=== PATIENT | male | born 1955 | race American Indian/Alaskan Native ===

== ENCOUNTER 2017-08-20 09:08 | Inpatient (IN) | payer MEDICARE ==
[2017-08-20] MEDS ORDERED: NACL 0.9% 500 ML 500 ML IV ONE (09:34)
[2017-08-20] MEDS ORDERED: NACL 0.9% 1000 ML 1,000 ML IV ONE ×3 (09:36→15:35)
[2017-08-20] MEDS ORDERED: TYLENOL PO ONE (09:38)
[2017-08-20 09:59] LABS: Hematocrit 40.7 % (35.5-45.6); Mean Corpuscular HGB Conc 32 % (32-34); Mean Corpuscular Volume 81 fl (84-94); Platelet Count 146 K/mm3 (140-440); Red Blood Count 5.03 M/mm3 (3.65-5.03)
[2017-08-20] MEDS ORDERED: ZOSYN/NS 4.5GM/100ML 4.5 GM/100 ML VIAL IV ONE (10:00)
[2017-08-20 10:05] LABS: Mean Corpuscular Hemoglobin 26 pg (28-32)
[2017-08-20 10:14] LABS: Albumin 3.9 g/dL (3.9-5); Calcium 9.7 mg/dL (8.4-10.2)
[2017-08-20 10:22] LABS: Bacteria,Urine 4+ /HPF (Negative); Bilirubin,Urine NEG (Negative); Blood,Urine LG (Negative); Color,Urine Amber (Yellow); Nitrite,Urine NEG (Negative); Urobilinogen,Urine < 2.0 mg/dL (<2.0)
[2017-08-20 10:24] LABS: RBC,Urine > 182.0 /HPF (0.0-6.0); WBC,Urine > 182.0 /HPF (0.0-6.0)
[2017-08-20 10:28] LABS: INR 1.48 (0.87-1.13)
[2017-08-20] MEDS ORDERED: LEVAQUIN 750MG/150ML 750 MG/150 ML BAG IV ONE (10:28)
[2017-08-20 10:29] LABS: Partial Thromboplastin Time 37.3 Sec. (24.2-36.6)
--- NOTE | 2017-08-20 10:34 | Emergency Department Report ---
ED Fever HPI - General Chief Complaint: Fever Stated Complaint: BLOOD IN URINE Time Seen by Provider: 08/20/17 09:31 Source: EMS, [facility] records Exam Limitations: other (autism) - History of Present Illness Initial Comments: 62-year-old male with a past medical history of DVT, pressure ulcer, hypertension, MRSA, autism, and dysphagia presents to the hospital complains of fever and blood in urine. Patient is on Eliquis. Patient presents to ED with indwelling urethral Montiel. Unable to provide any history of present illness due to autism. Patient does not appear to be in any pain or distress. ED Review of Systems ROS: Stated complaint: BLOOD IN URINE Other details as noted in HPI Comment: Unobtainable due to pts medical conditions ED Past Medical Hx - Past Medical History Previous Medical History?: Yes Hx Deep Vein Thrombosis: Yes Additional medical history: Autistic - Surgical History Past Surgical History?: No - Social History Smoking Status: Unknown if ever smoked Substance Use Type: None ED Physical Exam - General Limitations: Language Barrier - Other Other exam information: General: Autistic Head exam: Atraumatic, normocephalic Eyes exam: Normal appearance ENT: Moist mucous membrane, normal oropharynx Neck exam: Normal inspection, full range of motion, no meningismus nontender Respiratory exam: Clear to auscultation bilateral, no wheezes, rales, crackles Cardiovascular: Tachycardic regular rhythm Abdomen: Soft, nondistended, and nontender, with normal bowel sounds, no rebound, or guarding Extremity: Limited range of motion of left arm secondary to contracture Neurologic: Alert, no facial droop, some contracture to the left arm equal hand assistant engineer and foot dorsiflexion. Bilateral lower extremity weakness with minimum antigravity movement of lower extremities. Sensation grossly intact Psychiatric: normal affect, normal mood Skin: Warm, dry, intact ED Course Vital Signs 08/20/17 08/20/17 08/20/17 09:32 10:25 10:35 Temperature 99.6 F Pulse Rate 150 H 142 H Respiratory 24 16 Rate Blood Pressure 112/60 O2 Sat by Pulse 100 Oximetry - Reevaluation(s) Reevaluation #1: 08/20/17 10:37 Patient treated with normal saline, Zosyn ordered, and then subsequently Levaquin sepsis. Heart rate improved with. Tylenol for low-grade temperature. No urine was obtained for full report from indwelling cath ED Medical Decision Making - Lab Data Result diagrams: 08/20/17 09:36 08/20/17 09:36 Lab Results 08/20/17 08/20/17 08/20/17 Range/Units 09:36 09:36 09:36 WBC 25.0 H (4.5-11.0) K/mm3 RBC 5.03 (3.65-5.03) M/mm3 Hgb 13.0 (11.8-15.2) gm/dl Hct 40.7 (35.5-45.6) % MCV 81 L (84-94) fl MCH 26 L (28-32) pg MCHC 32 (32-34) % RDW 17.0 H (13.2-15.2) % Plt Count 146 (140-440) K/mm3 Seg Neutrophils % Health Promotion Manager PT 18.7 H (12.2-14.9) Sec. INR 1.48 H (0.87-1.13) APTT 37.3 H (24.2-36.6) Sec. VBG pH (7.320-7.420) Sodium 146 H (137-145) mmol/L Potassium 4.6 (3.6-5.0) mmol/L Chloride 105.3 (98-107) mmol/L Carbon Dioxide 20 L (22-30) mmol/L Anion Gap 25 mmol/L BUN 54 H (9-20) mg/dL Creatinine 1.7 H (0.8-1.5) mg/dL Estimated GFR 50 ml/min BUN/Creatinine Ratio 32 % Glucose 167 H (75-100) mg/dL Lactic Acid (0.7-2.0) mmol/L Calcium 9.7 (8.4-10.2) mg/dL Total Bilirubin 1.00 (0.1-1.2) mg/dL AST 25 (5-40) units/L ALT 23 (7-56) units/L Alkaline Phosphatase 75 (35-129) units/L Total Protein 8.3 H (6.3-8.2) g/dL Albumin 3.9 (3.9-5) g/dL Albumin/Globulin Ratio 0.9 % Lipase (13-60) units/L Urine Color (Yellow) Urine Turbidity (Clear) Urine pH (5.0-7.0) Ur Specific [place] (1.003-1.030) Urine Protein (Negative) mg/dL Urine Glucose (UA) (Negative) mg/dL Urine Ketones (Negative) mg/dL Urine Blood (Negative) Urine Nitrite (Negative) Urine Bilirubin (Negative) Urine Urobilinogen (<2.0) mg/dL Ur Leukocyte Esterase (Negative) Urine WBC (Auto) (0.0-6.0) /HPF Urine RBC (Auto) (0.0-6.0) /HPF Urine Bacteria (Auto) (Negative) /HPF 08/20/17 08/20/17 08/20/17 Range/Units 09:36 09:36 09:45 WBC (4.5-11.0) K/mm3 RBC (3.65-5.03) M/mm3 Hgb (11.8-15.2) gm/dl Hct (35.5-45.6) % MCV (84-94) fl MCH (28-32) pg MCHC (32-34) % RDW (13.2-15.2) % Plt Count (140-440) K/mm3 Seg Neutrophils % PT (12.2-14.9) Sec. INR (0.87-1.13) APTT (24.2-36.6) Sec. VBG pH 7.456 H (7.320-7.420) Sodium (137-145) mmol/L Potassium (3.6-5.0) mmol/L Chloride (98-107) mmol/L Carbon Dioxide (22-30) mmol/L Anion Gap mmol/L BUN (9-20) mg/dL Creatinine (0.8-1.5) mg/dL Estimated GFR ml/min BUN/Creatinine Ratio % Glucose (75-100) mg/dL Lactic Acid 4.10 H* (0.7-2.0) mmol/L Calcium (8.4-10.2) mg/dL Total Bilirubin (0.1-1.2) mg/dL AST (5-40) units/L ALT (7-56) units/L Alkaline Phosphatase (35-129) units/L Total Protein (6.3-8.2) g/dL Albumin (3.9-5) g/dL Albumin/Globulin Ratio % Lipase 9 L (13-60) units/L Urine Color (Yellow) Urine Turbidity (Clear) Urine pH (5.0-7.0) Ur Specific [place] (1.003-1.030) Urine Protein (Negative) mg/dL Urine Glucose (UA) (Negative) mg/dL Urine Ketones (Negative) mg/dL Urine Blood (Negative) Urine Nitrite (Negative) Urine Bilirubin (Negative) Urine Urobilinogen (<2.0) mg/dL Ur Leukocyte Esterase (Negative) Urine WBC (Auto) (0.0-6.0) /HPF Urine RBC (Auto) (0.0-6.0) /HPF Urine Bacteria (Auto) (Negative) /HPF 08/20/17 Range/Units Unknown WBC (4.5-11.0) K/mm3 RBC (3.65-5.03) M/mm3 Hgb (11.8-15.2) gm/dl Hct (35.5-45.6) % MCV (84-94) fl MCH (28-32) pg MCHC (32-34) % RDW (13.2-15.2) % Plt Count (140-440) K/mm3 Seg Neutrophils % PT (12.2-14.9) Sec. INR (0.87-1.13) APTT (24.2-36.6) Sec. VBG pH (7.320-7.420) Sodium (137-145) mmol/L Potassium (3.6-5.0) mmol/L Chloride (98-107) mmol/L Carbon Dioxide (22-30) mmol/L Anion Gap mmol/L BUN (9-20) mg/dL Creatinine (0.8-1.5) mg/dL Estimated GFR ml/min BUN/Creatinine Ratio % Glucose (75-100) mg/dL Lactic Acid (0.7-2.0) mmol/L Calcium (8.4-10.2) mg/dL Total Bilirubin (0.1-1.2) mg/dL AST (5-40) units/L ALT (7-56) units/L Alkaline Phosphatase (35-129) units/L Total Protein (6.3-8.2) g/dL Albumin (3.9-5) g/dL Albumin/Globulin Ratio % Lipase (13-60) units/L Urine Color [place] (Yellow) Urine Turbidity Turbid (Clear) Urine pH 5.0 (5.0-7.0) Ur Specific [place] 1.016 (1.003-1.030) Urine Protein 30 mg/dl (Negative) mg/dL Urine Glucose (UA) 50 (Negative) mg/dL Urine Ketones Neg (Negative) mg/dL Urine Blood Lg (Negative) Urine Nitrite Neg (Negative) Urine Bilirubin Neg (Negative) Urine Urobilinogen < 2.0 (<2.0) mg/dL Ur Leukocyte Esterase Mod (Negative) Urine WBC (Auto) > 182.0 H (0.0-6.0) /HPF Urine RBC (Auto) > 182.0 (0.0-6.0) /HPF Urine Bacteria (Auto) 4+ (Negative) /HPF - EKG Data -: EKG Interpreted by Me EKG shows normal: sinus rhythm, axis (65), QRS complexes (82), ST-T waves (no stemi/t inv) Rate: tachycardia (146) - EKG Data When compared to previous EKG there are: previous EKG unavailable - Radiology Data Radiology results: image reviewed (cxr: naf, read by me) - Medical Decision Making Plan to admit patient to the hospital further treatment for UTI with sepsis. Treatment initiated in the ED. Hospitalist informed - Differential Diagnosis UTI, pneumonia, sepsis, dehydration, renal failure Critical Care Time: No Critical care attestation.: If time is entered above; I have spent that time in minutes in the direct care of this critically ill patient, excluding procedure time. ED Disposition Clinical Impression: Sepsis, UTI (urinary tract infection), Sinus tachycardia, Prerenal renal failure, Elevated lactic acid level, Leukocytosis, Autism, Hx of deep venous thrombosis, Anticoagulant long-term use, Hematuria Disposition: -09 OP ADMIT IP TO THIS HOSP Is pt being admited?: Yes Condition: Stable Time of Disposition: 10:33 ([place]/hospitalist)
[2017-08-20 10:55] LABS: Total Cells Counted 100
[2017-08-20 10:56] LABS: Band Neutrophils # (Manual) 4.5 K/mm3; Basophils % (Manual) 0 % (0.0-1.8); Eosinophils % (Manual) 0 % (0.0-4.3); Spherocytes Few
[2017-08-20 10:57] LABS: Hypochromasia 1+
--- NOTE | 2017-08-20 11:18 | XRay Report ---
PORTABLE CHEST: Fever An AP portable view of the chest demonstrates a normal cardiac contour considering the limits of this technique. The lungs are clear with no evidence of infiltrate, fluid or failure. IMPRESSION: Normal portable chest.
[2017-08-20] MEDS ORDERED: DULCOLAX PR PRN (11:28)
[2017-08-20] MEDS ORDERED: MILK OF MAGNESIA PO PRN (11:28)
[2017-08-20] MEDS ORDERED: ZOFRAN IV PRN (11:28)
[2017-08-20] MEDS ORDERED: TYLENOL PO PRN (11:28)
--- NOTE | 2017-08-20 11:31 | History and Physical Report ---
History of Present Illness Date of examination: 08/20/17 Date of admission: 08/20/17 Chief complaint: Fever Bloody urine History of present illness: Patient has Autism, lives in SNF. He also has history of hypertension, DVT lower ext, indwelling nagy, kidney stone. He was sent in because of fever and bloody urine. In ED was found to have Sepsis due to complicated UTI with indwelling catheter. He also has Sinus tachycardia, acute kidney injury. He has been on Eliquis for DVT lower extremities. Patient has Autism and cannot obtain history from him. History obtained from medical records and paper chart from [facility]. Will admit for further management. Past History Past Medical History: DVT, other (Autism, kidney stone, UTI, dysphagia) Past Surgical History: No surgical history Social history: full code, other (Autism, lives in SNF) Medications and Allergies Allergies Allergy/AdvReac Type Severity Reaction Status Date / Time No Known Allergies Allergy Unverified 08/20/17 09:31 Home Medications Medication Instructions Recorded Confirmed Last Taken Type Apixaban [Eliquis] 5 mg PO BID 08/20/17 08/20/17 Unknown History Ascorbic Acid [Vitamin C with Marsha 500 mg PO DAILY 08/20/17 08/20/17 Unknown History Hips] Ondansetron [Zofran TAB] 4 mg PO Q8HR PRN 08/20/17 08/20/17 Unknown History Zinc Sulfate 220 mg PO QDAY 08/20/17 08/20/17 Unknown History oxyCODONE /ACETAMINOPHEN [Percocet 1 tab PO Q6HR PRN 08/20/17 08/20/17 Unknown History 5/325] Active Meds: Active Medications Levofloxacin/Dextrose (Levaquin 750mg/150ml) 750 mg in 150 mls @ 100 mls/hr IV ONCE ONE Stop: 08/20/17 11:57 Last Admin: 08/20/17 10:46 Dose: 100 mls/hr Sodium Chloride (Nacl 0.9% 1000 Ml) 1,000 mls @ 999 mls/hr IV BOLUS ONE Stop: 08/20/17 11:47 Last Admin: 08/20/17 11:14 Dose: 999 mls/hr Review of Systems ROS unobtainable: due to mental status Exam - Physical Exam Narrative exam: GEN APPEARANCE : Not in acute distress, lying in bed, Obese HEENT: Normocephalic, Atraumatic NECK : supple, no JVD LUNGS: Clear to auscultation bilaterally, no rales, no wheeze HEART: S1 and S2 regular, tachy, no murmurs, rubs or gallop ABD: Soft, non tender, non distended, normal bowel sounds EXT: No edema, no clubbing, no cyanosis, no cyanosis NEURO: Lethargic, has Autism, follows commands : has indwelling nagy - Constitutional Vitals: Temp Pulse Resp BP Pulse Ox 99.6 F 141 H 16 136/88 99 08/20/17 09:32 08/20/17 10:45 08/20/17 10:45 08/20/17 10:45 08/20/17 10:45 Results - Labs CBC & Chem 7: 08/20/17 18:18 08/20/17 09:36 Labs: Abnormal lab results 08/20/17 08/20/17 08/20/17 Range/Units 09:36 09:36 09:36 WBC 25.0 H (4.5-11.0) K/mm3 MCV 81 L (84-94) fl MCH 26 L (28-32) pg RDW 17.0 H (13.2-15.2) % Lymphocytes % (Manual) 8.0 L (13.4-35.0) % Seg Neutrophils # Man 17.0 H (1.8-7.7) K/mm3 Monocytes # (Manual) 1.5 H (0.0-0.8) K/mm3 PT 18.7 H (12.2-14.9) Sec. INR 1.48 H (0.87-1.13) APTT 37.3 H (24.2-36.6) Sec. VBG pH (7.320-7.420) Sodium 146 H (137-145) mmol/L Carbon Dioxide 20 L (22-30) mmol/L BUN 54 H (9-20) mg/dL Creatinine 1.7 H (0.8-1.5) mg/dL Glucose 167 H (75-100) mg/dL Lactic Acid (0.7-2.0) mmol/L Total Protein 8.3 H (6.3-8.2) g/dL Lipase (13-60) units/L Urine WBC (Auto) (0.0-6.0) /HPF 08/20/17 08/20/17 08/20/17 Range/Units 09:36 09:36 09:45 WBC (4.5-11.0) K/mm3 MCV (84-94) fl MCH (28-32) pg RDW (13.2-15.2) % Lymphocytes % (Manual) (13.4-35.0) % Seg Neutrophils # Man (1.8-7.7) K/mm3 Monocytes # (Manual) (0.0-0.8) K/mm3 PT (12.2-14.9) Sec. INR (0.87-1.13) APTT (24.2-36.6) Sec. VBG pH 7.456 H (7.320-7.420) Sodium (137-145) mmol/L Carbon Dioxide (22-30) mmol/L BUN (9-20) mg/dL Creatinine (0.8-1.5) mg/dL Glucose (75-100) mg/dL Lactic Acid 4.10 H* (0.7-2.0) mmol/L Total Protein (6.3-8.2) g/dL Lipase 9 L (13-60) units/L Urine WBC (Auto) (0.0-6.0) /HPF 08/20/17 Range/Units Unknown WBC (4.5-11.0) K/mm3 MCV (84-94) fl MCH (28-32) pg RDW (13.2-15.2) % Lymphocytes % (Manual) (13.4-35.0) % Seg Neutrophils # Man (1.8-7.7) K/mm3 Monocytes # (Manual) (0.0-0.8) K/mm3 PT (12.2-14.9) Sec. INR (0.87-1.13) APTT (24.2-36.6) Sec. VBG pH (7.320-7.420) Sodium (137-145) mmol/L Carbon Dioxide (22-30) mmol/L BUN (9-20) mg/dL Creatinine (0.8-1.5) mg/dL Glucose (75-100) mg/dL Lactic Acid (0.7-2.0) mmol/L Total Protein (6.3-8.2) g/dL Lipase (13-60) units/L Urine WBC (Auto) > 182.0 H (0.0-6.0) /HPF Assessment and Plan Sepsis due to complicated UTI. Will admit to med/surg. Use sepsis protocol. Give Zosyn and Vancomycin iv. Blood cultures drawn. Repeat Lactic acid level Complicated UTI. He has indwelling catheter. Will consult Urology. Leukocytosis due to sepsis/UTI. Hematuria. he has history of kidney stone. Obtain CT Abd/pelvis. Consult Urology. Sinus tachycardia. May be due to dehydration. Will continue iv fluids. JET due to vasomotor nephropathy. Cr 1.7. He was given Normal saline bolus in ED. Continue iv fluids Autism. 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 Place on contact isolation Chronic DVT. Hold Eliquis Full code status Addendum:Was later called by Nurse that patient had coffee ground emesis. Hold Eliquis, start Protonix drip, Consult GI Physician. patient later became more tachy. Will admit to ICU instead of regular floor. The high probability of a clinically significant, sudden or life threatening deterioration of the [4] system(s) required my full and direct attention, intervention and personal management. The aggregate critical care time was [64] minutes. This time is in addition to time spent performing reported procedures but includes the following: [x] Data Review and interpretation [x] Patient assessment and monitoring of vital signs [x] Documentation [x] Medication orders and management
[2017-08-20] MEDS ORDERED: ZOSYN/NS 4.5GM/100ML 4.5 GM/100 ML VIAL IV SCH ×3 (12:00→21:00)
--- NOTE | 2017-08-20 13:12 | Event Note ---
Date: 08/20/17 Called by Nurse that Patient has coffee ground emesis. Will obtain H/H Q 6h, Protonix drip, NPO, hold Eliquis and Consult GI Physician.
--- NOTE | 2017-08-20 13:33 | Consultation ---
History of Present Illness Consult date: 08/20/17 Requesting physician: ADDIS GORDON Consult reason: tachycardia History of present illness: The patient is a 62 year old male with a history of DVT on Eliquis, hypertension , MRSA, pressure ulcer, autism who presented from his residential for evaluation of fever and hematuria. He has a chronic indwelling Montiel catheter. He was found to have urosepsis with an elevated WBC count and elevated lactic acid. Cardiology has been consulted for sinus tachycardia. The patient is non- verbal and no further history can be obtained at this time. Past History Past Medical History: DVT, other (Autism, kidney stone, UTI, dysphagia) Past Surgical History: No surgical history Social history: full code, other (Autism, lives in SNF) Family history: other (unable to obtain) Medications and Allergies Allergies Allergy/AdvReac Type Severity Reaction Status Date / Time No Known Allergies Allergy Unverified 08/20/17 09:31 Home Medications Medication Instructions Recorded Confirmed Last Taken Type Apixaban [Eliquis] 5 mg PO BID 08/20/17 08/20/17 Unknown History Ascorbic Acid [Vitamin C with Marsha 500 mg PO DAILY 08/20/17 08/20/17 Unknown History Hips] Ondansetron [Zofran TAB] 4 mg PO Q8HR PRN 08/20/17 08/20/17 Unknown History Zinc Sulfate 220 mg PO QDAY 08/20/17 08/20/17 Unknown History oxyCODONE /ACETAMINOPHEN [Percocet 1 tab PO Q6HR PRN 08/20/17 08/20/17 Unknown History 5/325] Active Meds: Active Medications Acetaminophen (Tylenol) 650 mg PO Q4H PRN PRN Reason: Pain MILD(1-3)/Fever >100.5/RIVERA Bisacodyl (Dulcolax) 10 mg ND QDAY PRN PRN Reason: Constipation unrelieved by MOM Piperacillin Sod/Tazobactam Sod (Zosyn/Ns 4.5gm/100ml) 4.5 gm in 100 mls @ 200 mls/hr IV Q6HR ISAIAS PRN Reason: Protocol Pantoprazole Sodium 80 mg/ (Sodium Chloride) 100 mls @ 10 mls/hr IV Q10H ISAIAS PRN Reason: 8 MG/HR Magnesium Hydroxide (Milk Of Magnesia) 30 ml PO Q4H PRN PRN Reason: Constipation Morphine Sulfate (Morphine) 2 mg IV Q4H PRN PRN Reason: Pain, Moderate (4-6) Ondansetron HCl (Zofran) 4 mg IV Q8H PRN PRN Reason: nausea or vomiting Review of Systems ROS unobtainable: due to mental status Physical Examination Vital Signs Temp Pulse BP Pulse Ox 99.6 F 150 H 112/60 100 08/20/17 09:32 08/20/17 09:32 08/20/17 09:32 08/20/17 09:32 General appearance: no acute distress HEENT: Positive: Normocephaly, Mucus Membranes Moist Neck: Positive: neck supple, trachea midline Cardiac: Positive: Regular Rhythm, Tachycardia Lungs: Positive: clear to auscultation Neuro: Positive: Other (awake, non verbal) Abdomen: Positive: Soft, Active Bowel Sounds Skin: Negative: Rash Extremities: Present: normal. Absent: edema Results 08/20/17 18:18 08/20/17 09:36 Cardiac Enzymes 08/20/17 Range/Units 09:36 AST 25 (5-40) units/L Coagulation 08/20/17 Range/Units 09:36 PT 18.7 H (12.2-14.9) Sec. INR 1.48 H (0.87-1.13) APTT 37.3 H (24.2-36.6) Sec. CBC 08/20/17 Range/Units 09:36 WBC 25.0 H (4.5-11.0) K/mm3 RBC 5.03 (3.65-5.03) M/mm3 Hgb 13.0 (11.8-15.2) gm/dl Hct 40.7 (35.5-45.6) % Plt Count 146 (140-440) K/mm3 Comprehensive Metabolic Panel 08/20/17 Range/Units 09:36 Sodium 146 H (137-145) mmol/L Potassium 4.6 (3.6-5.0) mmol/L Chloride 105.3 (98-107) mmol/L Carbon Dioxide 20 L (22-30) mmol/L BUN 54 H (9-20) mg/dL Creatinine 1.7 H (0.8-1.5) mg/dL Glucose 167 H (75-100) mg/dL Calcium 9.7 (8.4-10.2) mg/dL AST 25 (5-40) units/L ALT 23 (7-56) units/L Alkaline Phosphatase 75 (35-129) units/L Total Protein 8.3 H (6.3-8.2) g/dL Albumin 3.9 (3.9-5) g/dL - Imaging and Cardiology Echo: pending EKG: image reviewed EKG interpretations - Telemetry EKG Rhythm: Sinus Tachycardia - EKG Sinus rhythms and dysrhythmias: sinus tachycardia Assessment and Plan Assessment: Sinus tachycardia-->physiologic Sepsis due to complicated UTI Acute kidney injury Anemia/Coffee grouns emesis History of DVT on Eliquis History of MRSA Autism Plan: Agree with IVF. Obtain echocardiogram. Eliquis on hold due to hematuria and coffee ground emesis. The patient has been seen in conjunction with Dr. Martinez who agrees with the assessment and plan of care.
[2017-08-20] MEDS: PROTONIX 80 MG in NACL 0.9% 100 ML IV SCH (13:35)
[2017-08-20 14:29] LABS: Hematocrit 36.6 % (35.5-45.6); Hemoglobin 11.9 gm/dl (11.8-15.2)
[2017-08-20 14:31] LABS: Magnesium 1.6 mg/dL (1.7-2.3)
[2017-08-20 14:33] LABS: Creatine Kinase MB 3.5 ng/mL (0.0-4.0)
[2017-08-20] MEDS ORDERED: ZOFRAN ONE (14:36)
--- NOTE | 2017-08-20 14:36 | Gastroenterology Consultation ---
<PANKAJ CAMPA - Last Filed: 08/20/17 14:51> History of Present Illness - Reason for Consult Consult date: 08/20/17 coffee ground emesis Requesting physician: TERESA BORRERO - History of Present Illness Patient is a 62 y/o male with PMH of autism, kidney stone, MRSA, UTI, dysphagia , and DVT (on Eliquis) who was brought from [facility] to ED for evaluation of fever and hematuria. He was found on admission to have sepsis due to UTI with indwelling catheter. GI has been consulted for coffee-ground emesis. Patient is non-verbal and unable to give history. No family at bedside. History obtained via chart review. ER nurse reports 1 episode of pt vomiting moderate amount of dark black coffee-ground emesis since admission. No hematemesis, melena, or hematochezia. Rectal exam revealed light brown stool. During exam pt was retching. NG tube placed to LIS with no output of gastric content. Abd soft , non-distended, with normoactive BS. Previous GI hx unknown such as hx of PUD or previous EGD. Past History Past Medical History: DVT, other (Autism, kidney stone, UTI, dysphagia, MRSA) Past Surgical History: No surgical history Social history: full code, other (Autism, lives in SNF) Medications and Allergies Allergies Allergy/AdvReac Type Severity Reaction Status Date / Time No Known Allergies Allergy Unverified 08/20/17 09:31 Home Medications Medication Instructions Recorded Confirmed Last Taken Type Apixaban [Eliquis] 5 mg PO BID 08/20/17 08/20/17 Unknown History Ascorbic Acid [Vitamin C with Marsha 500 mg PO DAILY 08/20/17 08/20/17 Unknown History Hips] Ondansetron [Zofran TAB] 4 mg PO Q8HR PRN 08/20/17 08/20/17 Unknown History Zinc Sulfate 220 mg PO QDAY 08/20/17 08/20/17 Unknown History oxyCODONE /ACETAMINOPHEN [Percocet 1 tab PO Q6HR PRN 08/20/17 08/20/17 Unknown History 5/325] Active Meds: Active Medications Acetaminophen (Tylenol) 650 mg PO Q4H PRN PRN Reason: Pain MILD(1-3)/Fever >100.5/RIVERA Bisacodyl (Dulcolax) 10 mg AK QDAY PRN PRN Reason: Constipation unrelieved by MOM Piperacillin Sod/Tazobactam Sod (Zosyn/Ns 4.5gm/100ml) 4.5 gm in 100 mls @ 200 mls/hr IV Q6HR ISAIAS PRN Reason: Protocol Pantoprazole Sodium 80 mg/ (Sodium Chloride) 100 mls @ 10 mls/hr IV Q10H ISAIAS PRN Reason: 8 MG/HR Last Admin: 08/20/17 13:35 Dose: 8 mg/hr, 10 mls/hr Magnesium Hydroxide (Milk Of Magnesia) 30 ml PO Q4H PRN PRN Reason: Constipation Morphine Sulfate (Morphine) 2 mg IV Q4H PRN PRN Reason: Pain, Moderate (4-6) Ondansetron HCl (Zofran) 4 mg IV Q8H PRN PRN Reason: nausea or vomiting Review of Systems - Review of Systems ROS unobtainable: due to mental status Exam - Constitutional Vital Signs: Temp Pulse Resp BP Pulse Ox 98.5 F 130 H 23 108/69 37 L 08/20/17 13:20 08/20/17 13:01 08/20/17 13:01 08/20/17 13:01 08/20/17 13:01 General appearance: mild distress, other (non-verbal) - Respiratory Respiratory: bilateral: CTA - Cardiovascular Rhythm: other (tachycardia) Heart Sounds: Present: S1 & S2 Extremities: No edema - Gastrointestinal General gastrointestinal: Present: soft, non-distended, normal bowel sounds Rectal Exam: stool brown - Genitourinary Male Genitourinary: other (indwelling catheter with hematuria) - Neurologic Neurological: other - Labs CBC & Chem 7: 08/20/17 13:52 08/20/17 09:36 Lab Results: Laboratory Results - last 24 hr 08/20/17 08/20/17 08/20/17 09:36 09:36 09:36 WBC 25.0 H RBC 5.03 Hgb 13.0 Hct 40.7 MCV 81 L MCH 26 L MCHC 32 RDW 17.0 H Plt Count 146 Add Manual Diff Complete Total Counted 100 Seg Neutrophils % [employer] Attendant Seg Neuts % (Manual) 68.0 Band Neutrophils % 18.0 Lymphocytes % (Manual) 8.0 L Reactive Lymphs % (Man) 0 Monocytes % (Manual) 6.0 Eosinophils % (Manual) 0 Basophils % (Manual) 0 Metamyelocytes % 0 Myelocytes % 0 Promyelocytes % 0 Blast Cells % 0 Nucleated RBC % Not Reportable Seg Neutrophils # Man 17.0 H Band Neutrophils # 4.5 Lymphocytes # (Manual) 2.0 Abs React Lymphs (Man) 0.0 Monocytes # (Manual) 1.5 H Eosinophils # (Manual) 0.0 Basophils # (Manual) 0.0 Metamyelocytes # 0.0 Myelocytes # 0.0 Promyelocytes # 0.0 Blast Cells # 0.0 WBC Morphology Not Reportable Hypersegmented Neuts Not Reportable Hyposegmented Neuts Not Reportable Hypogranular Neuts Not Reportable Smudge Cells Not Reportable Toxic Granulation Not Reportable Toxic Vacuolation Not Reportable Dohle Bodies Not Reportable Pelger-Huet Anomaly Not Reportable Ashley Rods Not Reportable Platelet Estimate Not Reportable Clumped Platelets Not Reportable Plt Clumps, EDTA Not Reportable Large Platelets Not Reportable Giant Platelets Not Reportable Platelet Satelliting Not Reportable Plt Morphology Comment Not Reportable RBC Morphology Not Reportable Dimorphic RBCs Not Reportable Polychromasia Not Reportable Hypochromasia 1+ Poikilocytosis Not Reportable Anisocytosis Not Reportable Microcytosis Not Reportable Macrocytosis Not Reportable Spherocytes Few Pappenheimer Bodies Not Reportable Sickle Cells Not Reportable Target Cells Not Reportable Tear Drop Cells Not Reportable Ovalocytes Not Reportable Helmet Cells Not Reportable [place] Bodies Not Reportable [place] Rings Not Reportable Jerry Cells Not Reportable Bite Cells Not Reportable Crenated Cell Not Reportable Elliptocytes Not Reportable Acanthocytes (Spur) Not Reportable Rouleaux Not Reportable Hemoglobin C Crystals Not Reportable Schistocytes Not Reportable Malaria parasites Not Reportable Riaz Bodies Not Reportable Hem Pathologist Commnt No PT 18.7 H INR 1.48 H APTT 37.3 H VBG pH Sodium 146 H Potassium 4.6 Chloride 105.3 Carbon Dioxide 20 L Anion Gap 25 BUN 54 H Creatinine 1.7 H Estimated GFR 50 BUN/Creatinine Ratio 32 Glucose 167 H Lactic Acid Calcium 9.7 Phosphorus Magnesium Total Bilirubin 1.00 AST 25 ALT 23 Alkaline Phosphatase 75 Total Creatine Kinase CK-MB (CK-2) CK-MB (CK-2) Rel Index Troponin T Total Protein 8.3 H Albumin 3.9 Albumin/Globulin Ratio 0.9 Lipase Urine Color Urine Turbidity Urine pH Ur Specific [place] Urine Protein Urine Glucose (UA) Urine Ketones Urine Blood Urine Nitrite Urine Bilirubin Urine Urobilinogen Ur Leukocyte Esterase Urine WBC (Auto) Urine RBC (Auto) Urine Bacteria (Auto) 08/20/17 08/20/17 08/20/17 09:36 09:36 09:45 WBC RBC Hgb Hct MCV MCH MCHC RDW Plt Count Add Manual Diff Total Counted Seg Neutrophils % Seg Neuts % (Manual) Band Neutrophils % Lymphocytes % (Manual) Reactive Lymphs % (Man) Monocytes % (Manual) Eosinophils % (Manual) Basophils % (Manual) Metamyelocytes % Myelocytes % Promyelocytes % Blast Cells % Nucleated RBC % Seg Neutrophils # Man Band Neutrophils # Lymphocytes # (Manual) Abs React Lymphs (Man) Monocytes # (Manual) Eosinophils # (Manual) Basophils # (Manual) Metamyelocytes # Myelocytes # Promyelocytes # Blast Cells # WBC Morphology Hypersegmented Neuts Hyposegmented Neuts Hypogranular Neuts Smudge Cells Toxic Granulation Toxic Vacuolation Dohle Bodies Pelger-Huet Anomaly Ashley Rods Platelet Estimate Clumped Platelets Plt Clumps, EDTA Large Platelets Giant Platelets Platelet Satelliting Plt Morphology Comment RBC Morphology Dimorphic RBCs Polychromasia Hypochromasia Poikilocytosis Anisocytosis Microcytosis Macrocytosis Spherocytes Pappenheimer Bodies Sickle Cells Target Cells Tear Drop Cells Ovalocytes Helmet Cells [place] Bodies [place] Rings [place] Cells Bite Cells Crenated Cell Elliptocytes Acanthocytes (Spur) Rouleaux Hemoglobin C Crystals Schistocytes Malaria parasites Riaz Bodies Hem Pathologist Commnt PT INR APTT VBG pH 7.456 H Sodium Potassium Chloride Carbon Dioxide Anion Gap BUN Creatinine Estimated GFR BUN/Creatinine Ratio Glucose Lactic Acid 4.10 H* Calcium Phosphorus Magnesium Total Bilirubin AST ALT Alkaline Phosphatase Total Creatine Kinase CK-MB (CK-2) CK-MB (CK-2) Rel Index Troponin T Total Protein Albumin Albumin/Globulin Ratio Lipase 9 L Urine Color Urine Turbidity Urine pH Ur Specific [place] Urine Protein Urine Glucose (UA) Urine Ketones Urine Blood Urine Nitrite Urine Bilirubin Urine Urobilinogen Ur Leukocyte Esterase Urine WBC (Auto) Urine RBC (Auto) Urine Bacteria (Auto) 08/20/17 08/20/17 08/20/17 13:52 13:52 13:52 WBC RBC Hgb 11.9 Hct 36.6 MCV MCH MCHC RDW Plt Count Add Manual Diff Total Counted Seg Neutrophils % Seg Neuts % (Manual) Band Neutrophils % Lymphocytes % (Manual) Reactive Lymphs % (Man) Monocytes % (Manual) Eosinophils % (Manual) Basophils % (Manual) Metamyelocytes % Myelocytes % Promyelocytes % Blast Cells % Nucleated RBC % Seg Neutrophils # Man Band Neutrophils # Lymphocytes # (Manual) Abs React Lymphs (Man) Monocytes # (Manual) Eosinophils # (Manual) Basophils # (Manual) Metamyelocytes # Myelocytes # Promyelocytes # Blast Cells # WBC Morphology Hypersegmented Neuts Hyposegmented Neuts Hypogranular Neuts Smudge Cells Toxic Granulation Toxic Vacuolation Dohle Bodies Pelger-Huet Anomaly Ashley Rods Platelet Estimate Clumped Platelets Plt Clumps, EDTA Large Platelets Giant Platelets Platelet Satelliting Plt Morphology Comment RBC Morphology Dimorphic RBCs Polychromasia Hypochromasia Poikilocytosis Anisocytosis Microcytosis Macrocytosis Spherocytes Pappenheimer Bodies Sickle Cells Target Cells Tear Drop Cells Ovalocytes Helmet Cells [place] Bodies [place] Rings Jerry Cells Bite Cells Crenated Cell Elliptocytes Acanthocytes (Spur) Rouleaux Hemoglobin C Crystals Schistocytes Malaria parasites Riaz Bodies Hem Pathologist Commnt PT INR APTT VBG pH Sodium Potassium Chloride Carbon Dioxide Anion Gap BUN Creatinine Estimated GFR BUN/Creatinine Ratio Glucose Lactic Acid 3.10 H* Calcium Phosphorus Magnesium Total Bilirubin AST ALT Alkaline Phosphatase Total Creatine Kinase 295 H CK-MB (CK-2) 3.5 CK-MB (CK-2) Rel Index 1.1 Troponin T < 0.010 Total Protein Albumin Albumin/Globulin Ratio Lipase Urine Color Urine Turbidity Urine pH Ur Specific [place] Urine Protein Urine Glucose (UA) Urine Ketones Urine Blood Urine Nitrite Urine Bilirubin Urine Urobilinogen Ur Leukocyte Esterase Urine WBC (Auto) Urine RBC (Auto) Urine Bacteria (Auto) 08/20/17 08/20/17 13:52 Unknown WBC RBC Hgb Hct MCV MCH MCHC RDW Plt Count Add Manual Diff Total Counted Seg Neutrophils % Seg Neuts % (Manual) Band Neutrophils % Lymphocytes % (Manual) Reactive Lymphs % (Man) Monocytes % (Manual) Eosinophils % (Manual) Basophils % (Manual) Metamyelocytes % Myelocytes % Promyelocytes % Blast Cells % Nucleated RBC % Seg Neutrophils # Man Band Neutrophils # Lymphocytes # (Manual) Abs React Lymphs (Man) Monocytes # (Manual) Eosinophils # (Manual) Basophils # (Manual) Metamyelocytes # Myelocytes # Promyelocytes # Blast Cells # WBC Morphology Hypersegmented Neuts Hyposegmented Neuts Hypogranular Neuts Smudge Cells Toxic Granulation Toxic Vacuolation Dohle Bodies Pelger-Huet Anomaly Ashley Rods Platelet Estimate Clumped Platelets Plt Clumps, EDTA Large Platelets Giant Platelets Platelet Satelliting Plt Morphology Comment RBC Morphology Dimorphic RBCs Polychromasia Hypochromasia Poikilocytosis Anisocytosis Microcytosis Macrocytosis Spherocytes Pappenheimer Bodies Sickle Cells Target Cells Tear Drop Cells Ovalocytes Helmet Cells [place] Bodies [place] Cells Bite Cells Crenated Cell Elliptocytes Acanthocytes (Spur) Rouleaux Hemoglobin C Crystals Schistocytes Malaria parasites Riaz Bodies Hem Pathologist Commnt PT INR APTT VBG pH Sodium Potassium Chloride Carbon Dioxide Anion Gap BUN Creatinine Estimated GFR BUN/Creatinine Ratio Glucose Lactic Acid Calcium Phosphorus 2.70 Magnesium 1.60 L Total Bilirubin AST ALT Alkaline Phosphatase Total Creatine Kinase CK-MB (CK-2) CK-MB (CK-2) Rel Index Troponin T Total Protein Albumin Albumin/Globulin Ratio Lipase Urine Color [place] Urine Turbidity Turbid Urine pH 5.0 Ur Specific [place] 1.016 Urine Protein 30 mg/dl Urine Glucose (UA) 50 Urine Ketones Neg Urine Blood Lg Urine Nitrite Neg Urine Bilirubin Neg Urine Urobilinogen < 2.0 Ur Leukocyte Esterase Mod Urine WBC (Auto) > 182.0 H Urine RBC (Auto) > 182.0 Urine Bacteria (Auto) 4+ Assessment and Plan 1. coffee ground emesis 2.sepsis 2/2 UTI 3.hematuria 4.Autism 5.h/o DVT -HGB 11.9- trending down -continue to monitor H/H and transfuse as needed -hold blood thinning medications (last dose of Eliquis 08/20) -vomiting coffee-ground emesis x 1 episode in ED per nursing -rectal exam revealed light brown stool -NG tube placed to LIS with no output of gastric content -continue PPI -etiology unclear -will consider EGD based on progress -will follow <GARRETT PHILLIP - Last Filed: 08/21/17 09:56> Medications and Allergies Active Meds: Active Medications Acetaminophen (Tylenol) 650 mg PO Q4H PRN PRN Reason: Pain MILD(1-3)/Fever >100.5/RIVERA Bisacodyl (Dulcolax) 10 mg [place] QDAY PRN PRN Reason: Constipation unrelieved by MOM Haloperidol Lactate (Haldol) 2.5 mg IM Q6H PRN PRN Reason: Agitation Piperacillin Sod/Tazobactam Sod (Zosyn/Ns 3.375gm/50ml) 3.375 gm in 50 mls @ 100 mls/hr IV Q6H ISAIAS Last Admin: 08/21/17 03:33 Dose: 100 mls/hr Pantoprazole Sodium 80 mg/ (Sodium Chloride) 100 mls @ 10 mls/hr IV DIRECT ISAIAS PRN Reason: 8 MG/HR Dextrose (D5w) 1,000 mls @ 75 mls/hr IV DIRECT ISAIAS Last Admin: 08/21/17 09:53 Dose: 75 mls/hr Magnesium Hydroxide (Milk Of Magnesia) 30 ml PO Q4H PRN PRN Reason: Constipation Morphine Sulfate (Morphine) 2 mg IV Q4H PRN PRN Reason: Pain, Moderate (4-6) Last Admin: 08/21/17 03:34 Dose: 2 mg Ondansetron HCl (Zofran) 4 mg IV Q8H PRN PRN Reason: nausea or vomiting Exam - Constitutional Vital Signs: Temp Pulse Resp BP Pulse Ox 98.5 F 125 H 17 108/71 98 08/20/17 13:20 08/21/17 08:01 08/21/17 08:01 08/21/17 08:01 08/21/17 08:01 - Labs CBC & Chem 7: 08/21/17 03:45 08/21/17 03:45 Lab Results: Laboratory Results - last 24 hr 08/20/17 08/20/17 08/20/17 09:36 09:36 09:36 WBC 25.0 H RBC 5.03 Hgb 13.0 Hct 40.7 MCV 81 L MCH 26 L MCHC 32 RDW 17.0 H Plt Count 146 Add Manual Diff Complete Total Counted 100 Seg Neutrophils % [employer] Service Attendant Seg Neuts % (Manual) 68.0 Band Neutrophils % 18.0 Lymphocytes % (Manual) 8.0 L Reactive Lymphs % (Man) 0 Monocytes % (Manual) 6.0 Eosinophils % (Manual) 0 Basophils % (Manual) 0 Metamyelocytes % 0 Myelocytes % 0 Promyelocytes % 0 Blast Cells % 0 Nucleated RBC % Not Reportable Seg Neutrophils # Man 17.0 H Band Neutrophils # 4.5 Lymphocytes # (Manual) 2.0 Abs React Lymphs (Man) 0.0 Monocytes # (Manual) 1.5 H Eosinophils # (Manual) 0.0 Basophils # (Manual) 0.0 Metamyelocytes # 0.0 Myelocytes # 0.0 Promyelocytes # 0.0 Blast Cells # 0.0 WBC Morphology Not Reportable Hypersegmented Neuts Not Reportable Hyposegmented Neuts Not Reportable Hypogranular Neuts Not Reportable Smudge Cells Not Reportable Toxic Granulation Not Reportable Toxic Vacuolation Not Reportable Dohle Bodies Not Reportable Pelger-Huet Anomaly Not Reportable Ashley Rods Not Reportable Platelet Estimate Not Reportable Clumped Platelets Not Reportable Plt Clumps, EDTA Not Reportable Large Platelets Not Reportable Giant Platelets Not Reportable Platelet Satelliting Not Reportable Plt Morphology Comment Not Reportable RBC Morphology Not Reportable Dimorphic RBCs Not Reportable Polychromasia Not Reportable Hypochromasia 1+ Poikilocytosis Not Reportable Anisocytosis Not Reportable Microcytosis Not Reportable Macrocytosis Not Reportable Spherocytes Few Pappenheimer Bodies Not Reportable Sickle Cells Not Reportable Target Cells Not Reportable Tear Drop Cells Not Reportable Ovalocytes Not Reportable Helmet Cells Not Reportable [place] Bodies Not Reportable [place] Rings Not Reportable Jerry Cells Not Reportable Bite Cells Not Reportable Crenated Cell Not Reportable Elliptocytes Not Reportable Acanthocytes (Spur) Not Reportable Rouleaux Not Reportable Hemoglobin C Crystals Not Reportable Schistocytes Not Reportable Malaria parasites Not Reportable Riaz Bodies Not Reportable Hem Pathologist Commnt No PT 18.7 H INR 1.48 H APTT 37.3 H VBG pH Sodium 146 H Potassium 4.6 Chloride 105.3 Carbon Dioxide 20 L Anion Gap 25 BUN 54 H Creatinine 1.7 H Estimated GFR 50 BUN/Creatinine Ratio 32 Glucose 167 H POC Glucose Lactic Acid Calcium 9.7 Phosphorus Magnesium Total Bilirubin 1.00 AST 25 ALT 23 Alkaline Phosphatase 75 Total Creatine Kinase CK-MB (CK-2) CK-MB (CK-2) Rel Index Troponin T Total Protein 8.3 H Albumin 3.9 Albumin/Globulin Ratio 0.9 Lipase Urine Color Urine Turbidity Urine pH Ur Specific [place] Urine Protein Urine Glucose (UA) Urine Ketones Urine Blood Urine Nitrite Urine Bilirubin Urine Urobilinogen Ur Leukocyte Esterase Urine WBC (Auto) Urine RBC (Auto) Urine Bacteria (Auto) Blood Type Antibody Screen 08/20/17 08/20/17 08/20/17 09:36 09:36 09:45 WBC RBC Hgb Hct MCV MCH MCHC RDW Plt Count Add Manual Diff Total Counted Seg Neutrophils % Seg Neuts % (Manual) Band Neutrophils % Lymphocytes % (Manual) Reactive Lymphs % (Man) Monocytes % (Manual) Eosinophils % (Manual) Basophils % (Manual) Metamyelocytes % Myelocytes % Promyelocytes % Blast Cells % Nucleated RBC % Seg Neutrophils # Man Band Neutrophils # Lymphocytes # (Manual) Abs React Lymphs (Man) Monocytes # (Manual) Eosinophils # (Manual) Basophils # (Manual) Metamyelocytes # Myelocytes # Promyelocytes # Blast Cells # WBC Morphology Hypersegmented Neuts Hyposegmented Neuts Hypogranular Neuts Smudge Cells Toxic Granulation Toxic Vacuolation Dohle Bodies Pelger-Huet Anomaly Ashlye Rods Platelet Estimate Clumped Platelets Plt Clumps, EDTA Large Platelets Giant Platelets Platelet Satelliting Plt Morphology Comment RBC Morphology Dimorphic RBCs Polychromasia Hypochromasia Poikilocytosis Anisocytosis Microcytosis Macrocytosis Spherocytes Pappenheimer Bodies Sickle Cells Target Cells Tear Drop Cells Ovalocytes Helmet Cells [place] Bodies [place] Rings [place] Cells Bite Cells Crenated Cell Elliptocytes Acanthocytes (Spur) Rouleaux Hemoglobin C Crystals Schistocytes Malaria parasites Riaz Bodies Hem Pathologist Commnt PT INR APTT VBG pH 7.456 H Sodium Potassium Chloride Carbon Dioxide Anion Gap BUN Creatinine Estimated GFR BUN/Creatinine Ratio Glucose POC Glucose Lactic Acid 4.10 H* Calcium Phosphorus Magnesium Total Bilirubin AST ALT Alkaline Phosphatase Total Creatine Kinase CK-MB (CK-2) CK-MB (CK-2) Rel Index Troponin T Total Protein Albumin Albumin/Globulin Ratio Lipase 9 L Urine Color Urine Turbidity Urine pH Ur Specific [place] Urine Protein Urine Glucose (UA) Urine Ketones Urine Blood Urine Nitrite Urine Bilirubin Urine Urobilinogen Ur Leukocyte Esterase Urine WBC (Auto) Urine RBC (Auto) Urine Bacteria (Auto) Blood Type Antibody Screen 08/20/17 08/20/17 08/20/17 13:52 13:52 13:52 WBC RBC Hgb 11.9 Hct 36.6 MCV MCH MCHC RDW Plt Count Add Manual Diff Total Counted Seg Neutrophils % Seg Neuts % (Manual) Band Neutrophils % Lymphocytes % (Manual) Reactive Lymphs % (Man) Monocytes % (Manual) Eosinophils % (Manual) Basophils % (Manual) Metamyelocytes % Myelocytes % Promyelocytes % Blast Cells % Nucleated RBC % Seg Neutrophils # Man Band Neutrophils # Lymphocytes # (Manual) Abs React Lymphs (Man) Monocytes # (Manual) Eosinophils # (Manual) Basophils # (Manual) Metamyelocytes # Myelocytes # Promyelocytes # Blast Cells # WBC Morphology Hypersegmented Neuts Hyposegmented Neuts Hypogranular Neuts Smudge Cells Toxic Granulation Toxic Vacuolation Dohle Bodies Pelger-Huet Anomaly Ashley Rods Platelet Estimate Clumped Platelets Plt Clumps, EDTA Large Platelets Giant Platelets Platelet Satelliting Plt Morphology Comment RBC Morphology Dimorphic RBCs Polychromasia Hypochromasia Poikilocytosis Anisocytosis Microcytosis Macrocytosis Spherocytes Pappenheimer Bodies Sickle Cells Target Cells Tear Drop Cells Ovalocytes Helmet Cells [place] Bodies [place] Rings [place] Cells Bite Cells Crenated Cell Elliptocytes Acanthocytes (Spur) Rouleaux Hemoglobin C Crystals Schistocytes Malaria parasites Riaz Bodies Hem Pathologist Commnt PT INR APTT VBG pH Sodium Potassium Chloride Carbon Dioxide Anion Gap BUN Creatinine Estimated GFR BUN/Creatinine Ratio Glucose POC Glucose Lactic Acid 3.10 H* Calcium Phosphorus Magnesium Total Bilirubin AST ALT Alkaline Phosphatase Total Creatine Kinase 295 H CK-MB (CK-2) 3.5 CK-MB (CK-2) Rel Index 1.1 Troponin T < 0.010 Total Protein Albumin Albumin/Globulin Ratio Lipase Urine Color Urine Turbidity Urine pH Ur Specific [place] Urine Protein Urine Glucose (UA) Urine Ketones Urine Blood Urine Nitrite Urine Bilirubin Urine Urobilinogen Ur Leukocyte Esterase Urine WBC (Auto) Urine RBC (Auto) Urine Bacteria (Auto) Blood Type Antibody Screen 08/20/17 08/20/17 08/20/17 13:52 18:18 18:18 WBC RBC Hgb 10.8 L Hct 33.2 L MCV MCH MCHC RDW Plt Count Add Manual Diff Total Counted Seg Neutrophils % Seg Neuts % (Manual) Band Neutrophils % Lymphocytes % (Manual) Reactive Lymphs % (Man) Monocytes % (Manual) Eosinophils % (Manual) Basophils % (Manual) Metamyelocytes % Myelocytes % Promyelocytes % Blast Cells % Nucleated RBC % Seg Neutrophils # Man Band Neutrophils # Lymphocytes # (Manual) Abs React Lymphs (Man) Monocytes # (Manual) Eosinophils # (Manual) Basophils # (Manual) Metamyelocytes # Myelocytes # Promyelocytes # Blast Cells # WBC Morphology Hypersegmented Neuts Hyposegmented Neuts Hypogranular Neuts Smudge Cells Toxic Granulation Toxic Vacuolation Dohle Bodies Pelger-Huet Anomaly Ashley Rods Platelet Estimate Clumped Platelets Plt Clumps, EDTA Large Platelets Giant Platelets Platelet Satelliting Plt Morphology Comment RBC Morphology Dimorphic RBCs Polychromasia Hypochromasia Poikilocytosis Anisocytosis Microcytosis Macrocytosis Spherocytes Pappenheimer Bodies Sickle Cells Target Cells Tear Drop Cells Ovalocytes Helmet Cells [place] Bodies [place] Cells Bite Cells Crenated Cell Elliptocytes Acanthocytes (Spur) Rouleaux Hemoglobin C Crystals Schistocytes Malaria parasites Riaz Bodies Hem Pathologist Commnt PT INR APTT VBG pH Sodium Potassium Chloride Carbon Dioxide Anion Gap BUN Creatinine Estimated GFR BUN/Creatinine Ratio Glucose POC Glucose Lactic Acid Calcium Phosphorus 2.70 Magnesium 1.60 L Total Bilirubin AST ALT Alkaline Phosphatase Total Creatine Kinase CK-MB (CK-2) CK-MB (CK-2) Rel Index Troponin T Total Protein Albumin Albumin/Globulin Ratio Lipase Urine Color Urine Turbidity Urine pH Ur Specific [place] Urine Protein Urine Glucose (UA) Urine Ketones Urine Blood Urine Nitrite Urine Bilirubin Urine Urobilinogen Ur Leukocyte Esterase Urine WBC (Auto) Urine RBC (Auto) Urine Bacteria (Auto) Blood Type O POSITIVE Antibody Screen Negative 08/20/17 08/21/17 08/21/17 Unknown 03:45 03:45 WBC 13.7 H RBC 4.08 Hgb 10.7 L Hct 33.2 L MCV 81 L MCH 26 L MCHC 32 RDW 17.2 H Plt Count 95 L Add Manual Diff Complete Total Counted 100 Seg Neutrophils % [employer] Service Attendant Seg Neuts % (Manual) 31.0 L Band Neutrophils % 64.0 Lymphocytes % (Manual) 3.0 L Reactive Lymphs % (Man) 0 Monocytes % (Manual) 2.0 Eosinophils % (Manual) 0 Basophils % (Manual) 0 Metamyelocytes % 0 Myelocytes % 0 Promyelocytes % 0 Blast Cells % 0 Nucleated RBC % Not Reportable Seg Neutrophils # Man 4.2 Band Neutrophils # 8.8 Lymphocytes # (Manual) 0.4 L Abs React Lymphs (Man) 0.0 Monocytes # (Manual) 0.3 Eosinophils # (Manual) 0.0 Basophils # (Manual) 0.0 Metamyelocytes # 0.0 Myelocytes # 0.0 Promyelocytes # 0.0 Blast Cells # 0.0 WBC Morphology Not Reportable Hypersegmented Neuts Not Reportable Hyposegmented Neuts Not Reportable Hypogranular Neuts Not Reportable Smudge Cells Not Reportable Toxic Granulation Not Reportable Toxic Vacuolation Not Reportable Dohle Bodies Few Pelger-Huet Anomaly Not Reportable Ashley Rods Not Reportable Platelet Estimate Consistent w auto Clumped Platelets Not Reportable Plt Clumps, EDTA Not Reportable Large Platelets Not Reportable Giant Platelets Not Reportable Platelet Satelliting Not Reportable Plt Morphology Comment Not Reportable RBC Morphology Not Reportable Dimorphic RBCs Not Reportable Polychromasia Not Reportable Hypochromasia 1+ Poikilocytosis Not Reportable Anisocytosis Not Reportable Microcytosis Few Macrocytosis Not Reportable Spherocytes Few Pappenheimer Bodies Not Reportable Sickle Cells Not Reportable Target Cells Not Reportable Tear Drop Cells Not Reportable Ovalocytes Not Reportable Helmet Cells Not Reportable [place] Bodies Not Reportable [place] Rings Not Reportable [place] Cells Not Reportable Bite Cells Not Reportable Crenated Cell Not Reportable Elliptocytes Not Reportable Acanthocytes (Spur) Not Reportable Rouleaux Not Reportable Hemoglobin C Crystals Not Reportable Schistocytes Not Reportable Malaria parasites Not Reportable Riaz Bodies Not Reportable Hem Pathologist Commnt No PT INR APTT VBG pH Sodium 155 H D Potassium 4.0 Chloride 116.8 H Carbon Dioxide 24 Anion Gap 18 BUN 41 H Creatinine 1.4 Estimated GFR > 60 BUN/Creatinine Ratio 29 Glucose 131 H POC Glucose Lactic Acid Calcium 8.4 Phosphorus Magnesium Total Bilirubin AST ALT Alkaline Phosphatase Total Creatine Kinase CK-MB (CK-2) CK-MB (CK-2) Rel Index Troponin T Total Protein Albumin Albumin/Globulin Ratio Lipase Urine Color Lucila Urine Turbidity Turbid Urine pH 5.0 Ur Specific [place] 1.016 Urine Protein 30 mg/dl Urine Glucose (UA) 50 Urine Ketones Neg Urine Blood Lg Urine Nitrite Neg Urine Bilirubin Neg Urine Urobilinogen < 2.0 Ur Leukocyte Esterase Mod Urine WBC (Auto) > 182.0 H Urine RBC (Auto) > 182.0 Urine Bacteria (Auto) 4+ Blood Type Antibody Screen 08/21/17 08:42 WBC RBC Hgb Hct MCV MCH MCHC RDW Plt Count Add Manual Diff Total Counted Seg Neutrophils % Seg Neuts % (Manual) Band Neutrophils % Lymphocytes % (Manual) Reactive Lymphs % (Man) Monocytes % (Manual) Eosinophils % (Manual) Basophils % (Manual) Metamyelocytes % Myelocytes % Promyelocytes % Blast Cells % Nucleated RBC % Seg Neutrophils # Man Band Neutrophils # Lymphocytes # (Manual) Abs React Lymphs (Man) Monocytes # (Manual) Eosinophils # (Manual) Basophils # (Manual) Metamyelocytes # Myelocytes # Promyelocytes # Blast Cells # WBC Morphology Hypersegmented Neuts Hyposegmented Neuts Hypogranular Neuts Smudge Cells Toxic Granulation Toxic Vacuolation Dohle Bodies Pelger-Huet Anomaly Ashley Rods Platelet Estimate Clumped Platelets Plt Clumps, EDTA Large Platelets Giant Platelets Platelet Satelliting Plt Morphology Comment RBC Morphology Dimorphic RBCs Polychromasia Hypochromasia Poikilocytosis Anisocytosis Microcytosis Macrocytosis Spherocytes Pappenheimer Bodies Sickle Cells Target Cells Tear Drop Cells Ovalocytes Helmet Cells [place] Bodies [place] Rings [place] Cells Bite Cells Crenated Cell Elliptocytes Acanthocytes (Spur) Rouleaux Hemoglobin C Crystals Schistocytes Malaria parasites Riaz Bodies Hem Pathologist Commnt PT INR APTT VBG pH Sodium Potassium Chloride Carbon Dioxide Anion Gap BUN Creatinine Estimated GFR BUN/Creatinine Ratio Glucose POC Glucose 119 H Lactic Acid Calcium Phosphorus Magnesium Total Bilirubin AST ALT Alkaline Phosphatase Total Creatine Kinase CK-MB (CK-2) CK-MB (CK-2) Rel Index Troponin T Total Protein Albumin Albumin/Globulin Ratio Lipase Urine Color Urine Turbidity Urine pH Ur Specific [place] Urine Protein Urine Glucose (UA) Urine Ketones Urine Blood Urine Nitrite Urine Bilirubin Urine Urobilinogen Ur Leukocyte Esterase Urine WBC (Auto) Urine RBC (Auto) Urine Bacteria (Auto) Blood Type Antibody Screen
--- NOTE | 2017-08-20 14:52 | Event Note ---
Date: 08/20/17 Called by Nurse that NG tube shows coffee ground emesis. He is tachy 170-180. Will transfer to ICU. .
[2017-08-20] MEDS ORDERED: NACL 0.9% 1000 ML 1,000 ML ONE (14:54)
[2017-08-20] MEDS ORDERED: HALDOL IM PRN (15:29)
[2017-08-20] MEDS ORDERED: HALDOL IM ONE (15:37)
--- NOTE | 2017-08-20 15:38 | Cat Scan Report ---
FINAL REPORT EXAM: CT ABDOMEN PELVIS WO CON HISTORY: Hematuria, JET TECHNIQUE: Unenhanced stone protocol CT of the abdomen and pelvis at 3.0 millimeter axial increments. Coronal and sagittal reconstruction was also performed. PRIORS: None. FINDINGS: There is no evidence for bilateral hydronephrosis. A nonobstructing 2 mm calculus in the upper pole right kidney is present. No evidence for ureteral calculus is seen. No evidence for renal or bladder mass is noted. However, there are extensive moderate and large-sized low-density cysts present in both kidneys. The largest extends off lateral left kidney measuring at least 7.0 x 8.8 x 8.5 cm. Curvilinear calcification along 1 wall of this cyst is seen. The urinary bladder is collapsed containing a Montiel catheter balloon. Within the bladder to the left of midline, there is a 2.4 x 2.7 x 2.5 cm large calculus. The bladder wall is diffusely thickened with a shaggy margin and stranding in the surrounding fat. Findings are most likely consistent with cystitis. A small-bowel loop passes by the anterior superior margin the bladder and may also have a mild amount of wall thickening, likely due to its adjacent positioning. It does not appear to be the epicenter of inflammation. Otherwise, within the limits of a noncontrast exam, the liver, spleen, pancreas, and adrenal glands are unremarkable. Numerous large gallstones are filling the gallbladder. No evidence for retroperitoneal or pelvic lymphadenopathy is seen. The bowel loops have normal caliber. No fluid collection, or free air is seen within the abdomen or pelvis. Within the pelvis, the prostate is normal. Images through the upper abdomen include the lung bases which demonstrate mild atelectasis in the right base posteriorly. Bony structures show no focal abnormalities. IMPRESSION: 1. No evidence for renal obstruction. Nonobstructing calculus in the upper pole right kidney 2. Numerous large low-density cyst present in both kidneys, 1 of which has curvilinear calcification along the wall, probably benign 3. Urinary bladder has wall thickening with a shaggy appearance and surrounding stranding in the fat. Findings are consistent with cystitis. This inflammation may also be involving an adjacent small loop due to its close proximity to the bladder anteriorly. 4. Large bladder calculus 5. Multiple large gallstones in the gallbladder 6. Atelectasis in the right lung base
[2017-08-20] MEDS ORDERED: HALDOL ONE (15:40)
[2017-08-20] MEDS: MORPHINE IV PRN (17:43)
[2017-08-20 18:48] LABS: Hematocrit 33.2 % (35.5-45.6); Hemoglobin 10.8 gm/dl (11.8-15.2)
[2017-08-20] MEDS ORDERED: MAGNESIUM SULFATE 3 GM in NACL 0.9% 100 ML IV ONE (21:00)
[2017-08-20] MEDS: ZOSYN/NS 3.375GM/50ML 3.375 GM/50 ML BAG IV SCH (21:34)
[2017-08-21] MEDS ORDERED: ZOSYN/NS 3.375GM/50ML 3.375 GM/50 ML BAG IV SCH
[2017-08-21] MEDS ORDERED: PROTONIX 80 MG in NACL 0.9% 100 ML IV SCH (01:00)
[2017-08-21] MEDS: PROTONIX 80 MG in NACL 0.9% 100 ML IV SCH (01:10)
[2017-08-21] MEDS: ZOSYN/NS 3.375GM/50ML 3.375 GM/50 ML BAG IV SCH ×4 (03:33→22:10)
[2017-08-21] MEDS: MORPHINE IV PRN (03:34)
[2017-08-21 04:15] LABS: Hematocrit 33.2 % (35.5-45.6); Hemoglobin 10.7 gm/dl (11.8-15.2); Mean Corpuscular HGB Conc 32 % (32-34); Mean Corpuscular Hemoglobin 26 pg (28-32); Mean Corpuscular Volume 81 fl (84-94); Red Blood Count 4.08 M/mm3 (3.65-5.03); Red Cell Distribution Width 17.2 % (13.2-15.2)
[2017-08-21 04:19] LABS: BUN/Creatinine Ratio 29; Blood Urea Nitrogen 41 mg/dL (9-20); Calcium 8.4 mg/dL (8.4-10.2); Hemolysis Index 2
[2017-08-21 04:37] LABS: Platelet Count 95 K/mm3 (140-440)
[2017-08-21 05:50] LABS: Band Neutrophils # (Manual) 8.8 K/mm3; Basophils % (Manual) 0 % (0.0-1.8); Eosinophils % (Manual) 0 % (0.0-4.3); Total Cells Counted 100
[2017-08-21 05:51] LABS: Dohle Bodies Few; Hypochromasia 1+; Platelet Estimate Consistent w Auto; Spherocytes Few
--- NOTE | 2017-08-21 08:54 | Progress Note ---
Assessment and Plan Assessment and plan: Sepsis due to complicated UTI. Patient still awaiting ICU bed. BP stable, tachy is less. May downgrade to Telemetry. Continue Zosyn and Vancomycin iv. Blood cultures drawn. Acute GI bleed with coffee ground emesis yesterday. has NG tube. H/H stable. He was evaluated by GI Physician yesterday. Complicated UTI. He has indwelling catheter. Consulted and discussed with Dr. Gilmore yesterday. Leukocytosis due to sepsis/UTI. Hematuria. He has history of kidney stone. CT Abd/pelvis done yesterday. Urology to evaluate. Sinus tachycardia. May be due to dehydration. Will continue iv fluids. JET due to vasomotor nephropathy, improved. Cr 1.4 today from 1.7 yesterday. He was given Normal saline bolus in ED. Continue iv fluids Autism. 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 Place on contact isolation Chronic DVT. Hold Eliquis Full code status The high probability of a clinically significant, sudden or life threatening deterioration of the [4] system(s) required my full and direct attention, intervention and personal management. The aggregate critical care time was [34] minutes. This time is in addition to time spent performing reported procedures but includes the following: [x] Data Review and interpretation [x] Patient assessment and monitoring of vital signs [x] Documentation [x] Medication orders and management History Interval history: No more fever, Minimal dark NG aspirate Still has tachycardia but less Hospitalist Physical - Physical exam Narrative exam: GEN APPEARANCE : Not in acute distress, lying in bed, Obese HEENT: Normocephalic, Atraumatic NECK : supple, no JVD LUNGS: Clear to auscultation bilaterally, no rales, no wheeze HEART: S1 and S2 regular, tachy, no murmurs, rubs or gallop ABD: Soft, non tender, non distended, normal bowel sounds EXT: No edema, no clubbing, no cyanosis, no cyanosis NEURO: Lethargic, has Autism, follows commands : has indwelling nagy catheter - Constitutional Vitals: Temp Pulse Resp BP Pulse Ox 98.5 F 125 H 17 108/71 98 08/20/17 13:20 08/21/17 08:01 08/21/17 08:01 08/21/17 08:01 08/21/17 08:01 General appearance: Present: no acute distress Results - Labs CBC & Chem 7: 08/21/17 03:45 08/21/17 03:45 Labs: Laboratory Last Values WBC 13.7 K/mm3 (4.5-11.0) H 08/21/17 03:45 RBC 4.08 M/mm3 (3.65-5.03) 08/21/17 03:45 Hgb 10.7 gm/dl (11.8-15.2) L 08/21/17 03:45 Hct 33.2 % (35.5-45.6) L 08/21/17 03:45 MCV 81 fl (84-94) L 08/21/17 03:45 MCH 26 pg (28-32) L 08/21/17 03:45 MCHC 32 % (32-34) 08/21/17 03:45 RDW 17.2 % (13.2-15.2) H 08/21/17 03:45 Plt Count 95 K/mm3 (140-440) L 08/21/17 03:45 Add Manual Diff Complete 08/21/17 03:45 Total Counted 100 08/21/17 03:45 Seg Neutrophils % Clinical Data Programmer 08/21/17 03:45 Seg Neuts % (Manual) 31.0 % (40.0-70.0) L 08/21/17 03:45 Band Neutrophils % 64.0 % 08/21/17 03:45 Lymphocytes % (Manual) 3.0 % (13.4-35.0) L 08/21/17 03:45 Reactive Lymphs % (Man) 0 % 08/21/17 03:45 Monocytes % (Manual) 2.0 % (0.0-7.3) 08/21/17 03:45 Eosinophils % (Manual) 0 % (0.0-4.3) 08/21/17 03:45 Basophils % (Manual) 0 % (0.0-1.8) 08/21/17 03:45 Metamyelocytes % 0 % 08/21/17 03:45 Myelocytes % 0 % 08/21/17 03:45 Promyelocytes % 0 % 08/21/17 03:45 Blast Cells % 0 % 08/21/17 03:45 Nucleated RBC % Not Reportable 08/21/17 03:45 Seg Neutrophils # Man 4.2 K/mm3 (1.8-7.7) 08/21/17 03:45 Band Neutrophils # 8.8 K/mm3 08/21/17 03:45 Lymphocytes # (Manual) 0.4 K/mm3 (1.2-5.4) L 08/21/17 03:45 Abs React Lymphs (Man) 0.0 K/mm3 08/21/17 03:45 Monocytes # (Manual) 0.3 K/mm3 (0.0-0.8) 08/21/17 03:45 Eosinophils # (Manual) 0.0 K/mm3 (0.0-0.4) 08/21/17 03:45 Basophils # (Manual) 0.0 K/mm3 (0.0-0.1) 08/21/17 03:45 Metamyelocytes # 0.0 K/mm3 08/21/17 03:45 Myelocytes # 0.0 K/mm3 08/21/17 03:45 Promyelocytes # 0.0 K/mm3 08/21/17 03:45 Blast Cells # 0.0 K/mm3 08/21/17 03:45 WBC Morphology Not Reportable 08/21/17 03:45 Hypersegmented Neuts Not Reportable 08/21/17 03:45 Hyposegmented Neuts Not Reportable 08/21/17 03:45 Hypogranular Neuts Not Reportable 08/21/17 03:45 Smudge Cells Not Reportable 08/21/17 03:45 Toxic Granulation Not Reportable 08/21/17 03:45 Toxic Vacuolation Not Reportable 08/21/17 03:45 Dohle Bodies Few 08/21/17 03:45 Pelger-Huet Anomaly Not Reportable 08/21/17 03:45 Ashley Rods Not Reportable 08/21/17 03:45 Platelet Estimate Consistent w auto 08/21/17 03:45 Clumped Platelets Not Reportable 08/21/17 03:45 Plt Clumps, EDTA Not Reportable 08/21/17 03:45 Large Platelets Not Reportable 08/21/17 03:45 Giant Platelets Not Reportable 08/21/17 03:45 Platelet Satelliting Not Reportable 08/21/17 03:45 Plt Morphology Comment Not Reportable 08/21/17 03:45 RBC Morphology Not Reportable 08/21/17 03:45 Dimorphic RBCs Not Reportable 08/21/17 03:45 Polychromasia Not Reportable 08/21/17 03:45 Hypochromasia 1+ 08/21/17 03:45 Poikilocytosis Not Reportable 08/21/17 03:45 Anisocytosis Not Reportable 08/21/17 03:45 Microcytosis Few 08/21/17 03:45 Macrocytosis Not Reportable 08/21/17 03:45 Spherocytes Few 08/21/17 03:45 Pappenheimer Bodies Not Reportable 08/21/17 03:45 Sickle Cells Not Reportable 08/21/17 03:45 Target Cells Not Reportable 08/21/17 03:45 Tear Drop Cells Not Reportable 08/21/17 03:45 Ovalocytes Not Reportable 08/21/17 03:45 Helmet Cells Not Reportable 08/21/17 03:45 [place] Bodies Not Reportable 08/21/17 03:45 [place] Rings Not Reportable 08/21/17 03:45 [place] Cells Not Reportable 08/21/17 03:45 Bite Cells Not Reportable 08/21/17 03:45 Crenated Cell Not Reportable 08/21/17 03:45 Elliptocytes Not Reportable 08/21/17 03:45 Acanthocytes (Spur) Not Reportable 08/21/17 03:45 Rouleaux Not Reportable 08/21/17 03:45 Hemoglobin C Crystals Not Reportable 08/21/17 03:45 Schistocytes Not Reportable 08/21/17 03:45 Malaria parasites Not Reportable 08/21/17 03:45 Riaz Bodies Not Reportable 08/21/17 03:45 Hem Pathologist Commnt No 08/21/17 03:45 PT 18.7 Sec. (12.2-14.9) H 08/20/17 09:36 INR 1.48 (0.87-1.13) H 08/20/17 09:36 APTT 37.3 Sec. (24.2-36.6) H 08/20/17 09:36 VBG pH 7.456 (7.320-7.420) H 08/20/17 09:36 Sodium 155 mmol/L (137-145) H D 08/21/17 03:45 Potassium 4.0 mmol/L (3.6-5.0) 08/21/17 03:45 Chloride 116.8 mmol/L (98-107) H 08/21/17 03:45 Carbon Dioxide 24 mmol/L (22-30) 08/21/17 03:45 Anion Gap 18 mmol/L 08/21/17 03:45 BUN 41 mg/dL (9-20) H 08/21/17 03:45 Creatinine 1.4 mg/dL (0.8-1.5) 08/21/17 03:45 Estimated GFR > 60 ml/min 08/21/17 03:45 BUN/Creatinine Ratio 29 % 08/21/17 03:45 Glucose 131 mg/dL (75-100) H 08/21/17 03:45 POC Glucose 119 (70-105) H 08/21/17 08:42 Lactic Acid 3.10 mmol/L (0.7-2.0) H* 08/20/17 13:52 Calcium 8.4 mg/dL (8.4-10.2) 08/21/17 03:45 Phosphorus 2.70 mg/dL (2.5-4.5) 08/20/17 13:52 Magnesium 1.60 mg/dL (1.7-2.3) L 08/20/17 13:52 Total Bilirubin 1.00 mg/dL (0.1-1.2) 08/20/17 09:36 AST 25 units/L (5-40) 08/20/17 09:36 ALT 23 units/L (7-56) 08/20/17 09:36 Alkaline Phosphatase 75 units/L (35-129) 08/20/17 09:36 Total Creatine Kinase 295 units/L (55-170) H 08/20/17 13:52 CK-MB (CK-2) 3.5 ng/mL (0.0-4.0) 08/20/17 13:52 CK-MB (CK-2) Rel Index 1.1 (0-4) 08/20/17 13:52 Troponin T < 0.010 ng/mL (0.00-0.029) 08/20/17 13:52 Total Protein 8.3 g/dL (6.3-8.2) H 08/20/17 09:36 Albumin 3.9 g/dL (3.9-5) 08/20/17 09:36 Albumin/Globulin Ratio 0.9 % 08/20/17 09:36 Lipase 9 units/L (13-60) L 08/20/17 09:45 Urine Color Lucila (Yellow) 08/20/17 Unknown Urine Turbidity Turbid (Clear) 08/20/17 Unknown Urine pH 5.0 (5.0-7.0) 08/20/17 Unknown Ur Specific [place] 1.016 (1.003-1.030) 08/20/17 Unknown Urine Protein 30 mg/dl mg/dL (Negative) 08/20/17 Unknown Urine Glucose (UA) 50 mg/dL (Negative) 08/20/17 Unknown Urine Ketones Neg mg/dL (Negative) 08/20/17 Unknown Urine Blood Lg (Negative) 08/20/17 Unknown Urine Nitrite Neg (Negative) 08/20/17 Unknown Urine Bilirubin Neg (Negative) 08/20/17 Unknown Urine Urobilinogen < 2.0 mg/dL (<2.0) 08/20/17 Unknown Ur Leukocyte Esterase Mod (Negative) 08/20/17 Unknown Urine WBC (Auto) > 182.0 /HPF (0.0-6.0) H 08/20/17 Unknown Urine RBC (Auto) > 182.0 /HPF (0.0-6.0) 08/20/17 Unknown Urine Bacteria (Auto) 4+ /HPF (Negative) 08/20/17 Unknown Blood Type O POSITIVE 08/20/17 18:18 Antibody Screen Negative 08/20/17 18:18
[2017-08-21] MEDS: D5W 1,000 ML IV SCH (09:53)
--- NOTE | 2017-08-21 10:03 | Gastroenterology Progress Note ---
Assessment and Plan 1. coffee ground emesis 2.sepsis 2/2 UTI 3.hematuria 4.Autism 5.h/o DVT -HGB 10.7- trending down -continue to monitor H/H and transfuse as needed -hold blood thinning medications (last dose of Eliquis 08/20) -no active signs of bleeding overnight or this am -stool for occult pending- rectal exam yesterday with light brown stool -continue PPI -etiology unclear- possible PUD vs other -will schedule for EGD in am -clear liquids today if pt tolerates -NPO after MN -will follow Subjective Date of service: 08/21/17 Principal diagnosis: coffee ground emesis Interval history: No acute distress. NG tube out, however nurse reports no further output of coffee-ground emesis this am prior to removal or no other active signs of bleeding. Objective - Constitutional Vitals: Temp Pulse Resp BP Pulse Ox 98.5 F 125 H 17 108/71 98 08/20/17 13:20 08/21/17 08:01 08/21/17 08:01 08/21/17 08:01 08/21/17 08:01 General appearance: no acute distress, other (non-verbal) - Respiratory Respiratory: bilateral: CTA - Cardiovascular Rhythm: other (tachycardia) Heart Sounds: Present: S1 & S2 - Gastrointestinal General gastrointestinal: Present: soft, non-distended, normal bowel sounds - Labs CBC & Chem 7: 08/21/17 03:45 08/21/17 03:45 Labs: Laboratory Results - last 24 hr 08/20/17 08/20/17 08/20/17 09:36 09:36 09:36 WBC 25.0 H RBC 5.03 Hgb 13.0 Hct 40.7 MCV 81 L MCH 26 L MCHC 32 RDW 17.0 H Plt Count 146 Add Manual Diff Complete Total Counted 100 Seg Neutrophils % Bus Mechanic Seg Neuts % (Manual) 68.0 Band Neutrophils % 18.0 Lymphocytes % (Manual) 8.0 L Reactive Lymphs % (Man) 0 Monocytes % (Manual) 6.0 Eosinophils % (Manual) 0 Basophils % (Manual) 0 Metamyelocytes % 0 Myelocytes % 0 Promyelocytes % 0 Blast Cells % 0 Nucleated RBC % Not Reportable Seg Neutrophils # Man 17.0 H Band Neutrophils # 4.5 Lymphocytes # (Manual) 2.0 Abs React Lymphs (Man) 0.0 Monocytes # (Manual) 1.5 H Eosinophils # (Manual) 0.0 Basophils # (Manual) 0.0 Metamyelocytes # 0.0 Myelocytes # 0.0 Promyelocytes # 0.0 Blast Cells # 0.0 WBC Morphology Not Reportable Hypersegmented Neuts Not Reportable Hyposegmented Neuts Not Reportable Hypogranular Neuts Not Reportable Smudge Cells Not Reportable Toxic Granulation Not Reportable Toxic Vacuolation Not Reportable Dohle Bodies Not Reportable Pelger-Huet Anomaly Not Reportable Ashley Rods Not Reportable Platelet Estimate Not Reportable Clumped Platelets Not Reportable Plt Clumps, EDTA Not Reportable Large Platelets Not Reportable Giant Platelets Not Reportable Platelet Satelliting Not Reportable Plt Morphology Comment Not Reportable RBC Morphology Not Reportable Dimorphic RBCs Not Reportable Polychromasia Not Reportable Hypochromasia 1+ Poikilocytosis Not Reportable Anisocytosis Not Reportable Microcytosis Not Reportable Macrocytosis Not Reportable Spherocytes Few Pappenheimer Bodies Not Reportable Sickle Cells Not Reportable Target Cells Not Reportable Tear Drop Cells Not Reportable Ovalocytes Not Reportable Helmet Cells Not Reportable [place] Bodies Not Reportable [place] Rings Not Reportable Jerry Cells Not Reportable Bite Cells Not Reportable Crenated Cell Not Reportable Elliptocytes Not Reportable Acanthocytes (Spur) Not Reportable Rouleaux Not Reportable Hemoglobin C Crystals Not Reportable Schistocytes Not Reportable Malaria parasites Not Reportable Riaz Bodies Not Reportable Hem Pathologist Commnt No PT 18.7 H INR 1.48 H APTT 37.3 H VBG pH Sodium 146 H Potassium 4.6 Chloride 105.3 Carbon Dioxide 20 L Anion Gap 25 BUN 54 H Creatinine 1.7 H Estimated GFR 50 BUN/Creatinine Ratio 32 Glucose 167 H POC Glucose Lactic Acid Calcium 9.7 Phosphorus Magnesium Total Bilirubin 1.00 AST 25 ALT 23 Alkaline Phosphatase 75 Total Creatine Kinase CK-MB (CK-2) CK-MB (CK-2) Rel Index Troponin T Total Protein 8.3 H Albumin 3.9 Albumin/Globulin Ratio 0.9 Lipase Urine Color Urine Turbidity Urine pH Ur Specific Boley Urine Protein Urine Glucose (UA) Urine Ketones Urine Blood Urine Nitrite Urine Bilirubin Urine Urobilinogen Ur Leukocyte Esterase Urine WBC (Auto) Urine RBC (Auto) Urine Bacteria (Auto) Blood Type Antibody Screen 08/20/17 08/20/17 08/20/17 09:36 09:36 09:45 WBC RBC Hgb Hct MCV MCH MCHC RDW Plt Count Add Manual Diff Total Counted Seg Neutrophils % Seg Neuts % (Manual) Band Neutrophils % Lymphocytes % (Manual) Reactive Lymphs % (Man) Monocytes % (Manual) Eosinophils % (Manual) Basophils % (Manual) Metamyelocytes % Myelocytes % Promyelocytes % Blast Cells % Nucleated RBC % Seg Neutrophils # Man Band Neutrophils # Lymphocytes # (Manual) Abs React Lymphs (Man) Monocytes # (Manual) Eosinophils # (Manual) Basophils # (Manual) Metamyelocytes # Myelocytes # Promyelocytes # Blast Cells # WBC Morphology Hypersegmented Neuts Hyposegmented Neuts Hypogranular Neuts Smudge Cells Toxic Granulation Toxic Vacuolation Dohle Bodies Pelger-Huet Anomaly Sahley Rods Platelet Estimate Clumped Platelets Plt Clumps, EDTA Large Platelets Giant Platelets Platelet Satelliting Plt Morphology Comment RBC Morphology Dimorphic RBCs Polychromasia Hypochromasia Poikilocytosis Anisocytosis Microcytosis Macrocytosis Spherocytes Pappenheimer Bodies Sickle Cells Target Cells Tear Drop Cells Ovalocytes Helmet Cells [place] Bodies [place] Rings [place] Cells Bite Cells Crenated Cell Elliptocytes Acanthocytes (Spur) Rouleaux Hemoglobin C Crystals Schistocytes Malaria parasites Riaz Bodies Hem Pathologist Commnt PT INR APTT VBG pH 7.456 H Sodium Potassium Chloride Carbon Dioxide Anion Gap BUN Creatinine Estimated GFR BUN/Creatinine Ratio Glucose POC Glucose Lactic Acid 4.10 H* Calcium Phosphorus Magnesium Total Bilirubin AST ALT Alkaline Phosphatase Total Creatine Kinase CK-MB (CK-2) CK-MB (CK-2) Rel Index Troponin T Total Protein Albumin Albumin/Globulin Ratio Lipase 9 L Urine Color Urine Turbidity Urine pH Ur Specific [place] Urine Protein Urine Glucose (UA) Urine Ketones Urine Blood Urine Nitrite Urine Bilirubin Urine Urobilinogen Ur Leukocyte Esterase Urine WBC (Auto) Urine RBC (Auto) Urine Bacteria (Auto) Blood Type Antibody Screen 08/20/17 08/20/17 08/20/17 13:52 13:52 13:52 WBC RBC Hgb 11.9 Hct 36.6 MCV MCH MCHC RDW Plt Count Add Manual Diff Total Counted Seg Neutrophils % Seg Neuts % (Manual) Band Neutrophils % Lymphocytes % (Manual) Reactive Lymphs % (Man) Monocytes % (Manual) Eosinophils % (Manual) Basophils % (Manual) Metamyelocytes % Myelocytes % Promyelocytes % Blast Cells % Nucleated RBC % Seg Neutrophils # Man Band Neutrophils # Lymphocytes # (Manual) Abs React Lymphs (Man) Monocytes # (Manual) Eosinophils # (Manual) Basophils # (Manual) Metamyelocytes # Myelocytes # Promyelocytes # Blast Cells # WBC Morphology Hypersegmented Neuts Hyposegmented Neuts Hypogranular Neuts Smudge Cells Toxic Granulation Toxic Vacuolation Dohle Bodies Pelger-Huet Anomaly Ashley Rods Platelet Estimate Clumped Platelets Plt Clumps, EDTA Large Platelets Giant Platelets Platelet Satelliting Plt Morphology Comment RBC Morphology Dimorphic RBCs Polychromasia Hypochromasia Poikilocytosis Anisocytosis Microcytosis Macrocytosis Spherocytes Pappenheimer Bodies Sickle Cells Target Cells Tear Drop Cells Ovalocytes Helmet Cells [place] Bodies [place] Rings Jerry Cells Bite Cells Crenated Cell Elliptocytes Acanthocytes (Spur) Rouleaux Hemoglobin C Crystals Schistocytes Malaria parasites Riaz Bodies Hem Pathologist Commnt PT INR APTT VBG pH Sodium Potassium Chloride Carbon Dioxide Anion Gap BUN Creatinine Estimated GFR BUN/Creatinine Ratio Glucose POC Glucose Lactic Acid 3.10 H* Calcium Phosphorus Magnesium Total Bilirubin AST ALT Alkaline Phosphatase Total Creatine Kinase 295 H CK-MB (CK-2) 3.5 CK-MB (CK-2) Rel Index 1.1 Troponin T < 0.010 Total Protein Albumin Albumin/Globulin Ratio Lipase Urine Color Urine Turbidity Urine pH Ur Specific Boley Urine Protein Urine Glucose (UA) Urine Ketones Urine Blood Urine Nitrite Urine Bilirubin Urine Urobilinogen Ur Leukocyte Esterase Urine WBC (Auto) Urine RBC (Auto) Urine Bacteria (Auto) Blood Type Antibody Screen 08/20/17 08/20/17 08/20/17 13:52 18:18 18:18 WBC RBC Hgb 10.8 L Hct 33.2 L MCV MCH MCHC RDW Plt Count Add Manual Diff Total Counted Seg Neutrophils % Seg Neuts % (Manual) Band Neutrophils % Lymphocytes % (Manual) Reactive Lymphs % (Man) Monocytes % (Manual) Eosinophils % (Manual) Basophils % (Manual) Metamyelocytes % Myelocytes % Promyelocytes % Blast Cells % Nucleated RBC % Seg Neutrophils # Man Band Neutrophils # Lymphocytes # (Manual) Abs React Lymphs (Man) Monocytes # (Manual) Eosinophils # (Manual) Basophils # (Manual) Metamyelocytes # Myelocytes # Promyelocytes # Blast Cells # WBC Morphology Hypersegmented Neuts Hyposegmented Neuts Hypogranular Neuts Smudge Cells Toxic Granulation Toxic Vacuolation Dohle Bodies Pelger-Huet Anomaly Ashley Rods Platelet Estimate Clumped Platelets Plt Clumps, EDTA Large Platelets Giant Platelets Platelet Satelliting Plt Morphology Comment RBC Morphology Dimorphic RBCs Polychromasia Hypochromasia Poikilocytosis Anisocytosis Microcytosis Macrocytosis Spherocytes Pappenheimer Bodies Sickle Cells Target Cells Tear Drop Cells Ovalocytes Helmet Cells [place] Bodies [place] Rings Jerry Cells Bite Cells Crenated Cell Elliptocytes Acanthocytes (Spur) Rouleaux Hemoglobin C Crystals Schistocytes Malaria parasites Riaz Bodies Hem Pathologist Commnt PT INR APTT VBG pH Sodium Potassium Chloride Carbon Dioxide Anion Gap BUN Creatinine Estimated GFR BUN/Creatinine Ratio Glucose POC Glucose Lactic Acid Calcium Phosphorus 2.70 Magnesium 1.60 L Total Bilirubin AST ALT Alkaline Phosphatase Total Creatine Kinase CK-MB (CK-2) CK-MB (CK-2) Rel Index Troponin T Total Protein Albumin Albumin/Globulin Ratio Lipase Urine Color Urine Turbidity Urine pH Ur Specific [place] Urine Protein Urine Glucose (UA) Urine Ketones Urine Blood Urine Nitrite Urine Bilirubin Urine Urobilinogen Ur Leukocyte Esterase Urine WBC (Auto) Urine RBC (Auto) Urine Bacteria (Auto) Blood Type O POSITIVE Antibody Screen Negative 08/20/17 08/21/17 08/21/17 Unknown 03:45 03:45 WBC 13.7 H RBC 4.08 Hgb 10.7 L Hct 33.2 L MCV 81 L MCH 26 L MCHC 32 RDW 17.2 H Plt Count 95 L Add Manual Diff Complete Total Counted 100 Seg Neutrophils % Bus Mechanic Seg Neuts % (Manual) 31.0 L Band Neutrophils % 64.0 Lymphocytes % (Manual) 3.0 L Reactive Lymphs % (Man) 0 Monocytes % (Manual) 2.0 Eosinophils % (Manual) 0 Basophils % (Manual) 0 Metamyelocytes % 0 Myelocytes % 0 Promyelocytes % 0 Blast Cells % 0 Nucleated RBC % Not Reportable Seg Neutrophils # Man 4.2 Band Neutrophils # 8.8 Lymphocytes # (Manual) 0.4 L Abs React Lymphs (Man) 0.0 Monocytes # (Manual) 0.3 Eosinophils # (Manual) 0.0 Basophils # (Manual) 0.0 Metamyelocytes # 0.0 Myelocytes # 0.0 Promyelocytes # 0.0 Blast Cells # 0.0 WBC Morphology Not Reportable Hypersegmented Neuts Not Reportable Hyposegmented Neuts Not Reportable Hypogranular Neuts Not Reportable Smudge Cells Not Reportable Toxic Granulation Not Reportable Toxic Vacuolation Not Reportable Dohle Bodies Few Pelger-Huet Anomaly Not Reportable Ashley Rods Not Reportable Platelet Estimate Consistent w auto Clumped Platelets Not Reportable Plt Clumps, EDTA Not Reportable Large Platelets Not Reportable Giant Platelets Not Reportable Platelet Satelliting Not Reportable Plt Morphology Comment Not Reportable RBC Morphology Not Reportable Dimorphic RBCs Not Reportable Polychromasia Not Reportable Hypochromasia 1+ Poikilocytosis Not Reportable Anisocytosis Not Reportable Microcytosis Few Macrocytosis Not Reportable Spherocytes Few Pappenheimer Bodies Not Reportable Sickle Cells Not Reportable Target Cells Not Reportable Tear Drop Cells Not Reportable Ovalocytes Not Reportable Helmet Cells Not Reportable [place] Bodies Not Reportable [place] Rings Not Reportable Jerry Cells Not Reportable Bite Cells Not Reportable Crenated Cell Not Reportable Elliptocytes Not Reportable Acanthocytes (Spur) Not Reportable Rouleaux Not Reportable Hemoglobin C Crystals Not Reportable Schistocytes Not Reportable Malaria parasites Not Reportable Riaz Bodies Not Reportable Hem Pathologist Commnt No PT INR APTT VBG pH Sodium 155 H D Potassium 4.0 Chloride 116.8 H Carbon Dioxide 24 Anion Gap 18 BUN 41 H Creatinine 1.4 Estimated GFR > 60 BUN/Creatinine Ratio 29 Glucose 131 H POC Glucose Lactic Acid Calcium 8.4 Phosphorus Magnesium Total Bilirubin AST ALT Alkaline Phosphatase Total Creatine Kinase CK-MB (CK-2) CK-MB (CK-2) Rel Index Troponin T Total Protein Albumin Albumin/Globulin Ratio Lipase Urine Color Lucila Urine Turbidity Turbid Urine pH 5.0 Ur Specific Boley 1.016 Urine Protein 30 mg/dl Urine Glucose (UA) 50 Urine Ketones Neg Urine Blood Lg Urine Nitrite Neg Urine Bilirubin Neg Urine Urobilinogen < 2.0 Ur Leukocyte Esterase Mod Urine WBC (Auto) > 182.0 H Urine RBC (Auto) > 182.0 Urine Bacteria (Auto) 4+ Blood Type Antibody Screen 08/21/17 08:42 WBC RBC Hgb Hct MCV MCH MCHC RDW Plt Count Add Manual Diff Total Counted Seg Neutrophils % Seg Neuts % (Manual) Band Neutrophils % Lymphocytes % (Manual) Reactive Lymphs % (Man) Monocytes % (Manual) Eosinophils % (Manual) Basophils % (Manual) Metamyelocytes % Myelocytes % Promyelocytes % Blast Cells % Nucleated RBC % Seg Neutrophils # Man Band Neutrophils # Lymphocytes # (Manual) Abs React Lymphs (Man) Monocytes # (Manual) Eosinophils # (Manual) Basophils # (Manual) Metamyelocytes # Myelocytes # Promyelocytes # Blast Cells # WBC Morphology Hypersegmented Neuts Hyposegmented Neuts Hypogranular Neuts Smudge Cells Toxic Granulation Toxic Vacuolation Dohle Bodies Pelger-Huet Anomaly Ashley Rods Platelet Estimate Clumped Platelets Plt Clumps, EDTA Large Platelets Giant Platelets Platelet Satelliting Plt Morphology Comment RBC Morphology Dimorphic RBCs Polychromasia Hypochromasia Poikilocytosis Anisocytosis Microcytosis Macrocytosis Spherocytes Pappenheimer Bodies Sickle Cells Target Cells Tear Drop Cells Ovalocytes Helmet Cells [place] Bodies [place] Rings [place] Cells Bite Cells Crenated Cell Elliptocytes Acanthocytes (Spur) Rouleaux Hemoglobin C Crystals Schistocytes Malaria parasites Riaz Bodies Hem Pathologist Commnt PT INR APTT VBG pH Sodium Potassium Chloride Carbon Dioxide Anion Gap BUN Creatinine Estimated GFR BUN/Creatinine Ratio Glucose POC Glucose 119 H Lactic Acid Calcium Phosphorus Magnesium Total Bilirubin AST ALT Alkaline Phosphatase Total Creatine Kinase CK-MB (CK-2) CK-MB (CK-2) Rel Index Troponin T Total Protein Albumin Albumin/Globulin Ratio Lipase Urine Color Urine Turbidity Urine pH Ur Specific [place] Urine Protein Urine Glucose (UA) Urine Ketones Urine Blood Urine Nitrite Urine Bilirubin Urine Urobilinogen Ur Leukocyte Esterase Urine WBC (Auto) Urine RBC (Auto) Urine Bacteria (Auto) Blood Type Antibody Screen
--- NOTE | 2017-08-21 11:01 | Progress Note ---
Assessment and Plan min sp disconfort poorly compliant severe autism bladder stone will treatr after gi bleed and sepsis resolved nagy draining well dictated Subjective Date of service: 08/21/17 Principal diagnosis: coffee ground emesis Objective - Constitutional Vitals: Vital Signs - 12hr 08/20/17 08/20/17 08/21/17 23:00 23:31 00:01 Pulse Rate 136 H 139 H 137 H Respiratory 21 21 22 Rate Blood Pressure 101/68 101/68 107/68 O2 Sat by Pulse 99 98 99 Oximetry 08/21/17 08/21/17 08/21/17 00:31 01:00 01:31 Pulse Rate 140 H 141 H 136 H Respiratory 18 22 21 Rate Blood Pressure 107/68 113/64 107/68 O2 Sat by Pulse 97 97 97 Oximetry 08/21/17 08/21/17 08/21/17 02:00 02:31 03:01 Pulse Rate 140 H 137 H 131 H Respiratory 21 18 20 Rate Blood Pressure 113/64 108/71 108/71 O2 Sat by Pulse 98 97 97 Oximetry 08/21/17 08/21/17 08/21/17 03:31 04:01 04:31 Pulse Rate 133 H 125 H 127 H Respiratory 16 19 18 Rate Blood Pressure 108/71 108/71 108/71 O2 Sat by Pulse 97 97 97 Oximetry 08/21/17 08/21/17 08/21/17 05:01 05:31 06:01 Pulse Rate 129 H 130 H 125 H Respiratory 16 19 19 Rate Blood Pressure 108/71 108/71 108/71 O2 Sat by Pulse 98 97 97 Oximetry 08/21/17 08/21/17 08/21/17 06:31 07:01 07:31 Pulse Rate 115 H 128 H 116 H Respiratory 18 16 18 Rate Blood Pressure 108/71 108/71 108/71 O2 Sat by Pulse 97 97 98 Oximetry 08/21/17 08:01 Pulse Rate 125 H Respiratory 17 Rate Blood Pressure 108/71 O2 Sat by Pulse 98 Oximetry General appearance: Present: mild distress, other (autistic ) - Neck Neck: supple - Respiratory Respiratory effort: normal - Gastrointestinal General gastrointestinal: Present: soft, tender - Labs CBC & Chem 7: 08/21/17 03:45 08/21/17 03:45 Labs: Abnormal lab results 08/20/17 08/20/17 08/20/17 Range/Units 13:52 13:52 13:52 WBC (4.5-11.0) K/mm3 Hgb (11.8-15.2) gm/dl Hct (35.5-45.6) % MCV (84-94) fl MCH (28-32) pg RDW (13.2-15.2) % Plt Count (140-440) K/mm3 Seg Neuts % (Manual) (40.0-70.0) % Lymphocytes % (Manual) (13.4-35.0) % Lymphocytes # (Manual) (1.2-5.4) K/mm3 Sodium (137-145) mmol/L Chloride (98-107) mmol/L BUN (9-20) mg/dL Glucose (75-100) mg/dL POC Glucose (70-105) Lactic Acid 3.10 H* (0.7-2.0) mmol/L Magnesium 1.60 L (1.7-2.3) mg/dL Total Creatine Kinase 295 H (55-170) units/L 08/20/17 08/21/17 08/21/17 Range/Units 18:18 03:45 03:45 WBC 13.7 H (4.5-11.0) K/mm3 Hgb 10.8 L 10.7 L (11.8-15.2) gm/dl Hct 33.2 L 33.2 L (35.5-45.6) % MCV 81 L (84-94) fl MCH 26 L (28-32) pg RDW 17.2 H (13.2-15.2) % Plt Count 95 L (140-440) K/mm3 Seg Neuts % (Manual) 31.0 L (40.0-70.0) % Lymphocytes % (Manual) 3.0 L (13.4-35.0) % Lymphocytes # (Manual) 0.4 L (1.2-5.4) K/mm3 Sodium 155 H D (137-145) mmol/L Chloride 116.8 H (98-107) mmol/L BUN 41 H (9-20) mg/dL Glucose 131 H (75-100) mg/dL POC Glucose (70-105) Lactic Acid (0.7-2.0) mmol/L Magnesium (1.7-2.3) mg/dL Total Creatine Kinase (55-170) units/L 08/21/17 Range/Units 08:42 WBC (4.5-11.0) K/mm3 Hgb (11.8-15.2) gm/dl Hct (35.5-45.6) % MCV (84-94) fl MCH (28-32) pg RDW (13.2-15.2) % Plt Count (140-440) K/mm3 Seg Neuts % (Manual) (40.0-70.0) % Lymphocytes % (Manual) (13.4-35.0) % Lymphocytes # (Manual) (1.2-5.4) K/mm3 Sodium (137-145) mmol/L Chloride (98-107) mmol/L BUN (9-20) mg/dL Glucose (75-100) mg/dL POC Glucose 119 H (70-105) Lactic Acid (0.7-2.0) mmol/L Magnesium (1.7-2.3) mg/dL Total Creatine Kinase (55-170) units/L
--- NOTE | 2017-08-21 11:17 | Progress Note ---
Assessment and Plan Assessment: Sinus tachycardia-->physiologic Sepsis due to complicated UTI Acute kidney injury Anemia/Coffee ground emesis History of DVT on Eliquis History of MRSA Autism Plan: Sinus tachycardia improved. Will f/u echo results. Eliquis on hold in anticipation of EGD tomorrow. May downgrade to telemetry from a cardiac standpoint. The patient has been seen in conjunction with Dr. Martinez who agrees with the assessment and plan of care. Subjective Date of service: 08/21/17 Principal diagnosis: coffee ground emesis, sinus tachycardia Interval history: The patient is resting in bed. No verbal response. No acute distress noted. Sinus tach on the monitor with HR 110s-120s. Objective Last Vital Signs Temp 98.5 F 08/20/17 13:20 Pulse 125 H 08/21/17 08:01 Resp 17 08/21/17 08:01 BP 108/71 08/21/17 08:01 Pulse Ox 98 08/21/17 08:01 - Physical Examination General: No Apparent Distress HEENT: Positive: Normocephaly, Mucus Membranes Moist Neck: Positive: neck supple, trachea midline Cardiac: Positive: Regular Rhythm, S1/S2, Tachycardia Lungs: Positive: clear to auscultation Neuro: Positive: Other (awake, non verbal) Abdomen: Positive: Soft, Active Bowel Sounds Skin: Negative: Rash Extremities: Present: normal. Absent: edema - Labs and Meds Cardiac Enzymes 08/20/17 Range/Units 13:52 CK-MB (CK-2) 3.5 (0.0-4.0) ng/mL CBC 08/20/17 08/20/17 08/21/17 Range/Units 13:52 18:18 03:45 WBC 13.7 H (4.5-11.0) K/mm3 RBC 4.08 (3.65-5.03) M/mm3 Hgb 11.9 10.8 L 10.7 L (11.8-15.2) gm/dl Hct 36.6 33.2 L 33.2 L (35.5-45.6) % Plt Count 95 L (140-440) K/mm3 Comprehensive Metabolic Panel 08/21/17 Range/Units 03:45 Sodium 155 H D (137-145) mmol/L Potassium 4.0 (3.6-5.0) mmol/L Chloride 116.8 H (98-107) mmol/L Carbon Dioxide 24 (22-30) mmol/L BUN 41 H (9-20) mg/dL Creatinine 1.4 (0.8-1.5) mg/dL Glucose 131 H (75-100) mg/dL Calcium 8.4 (8.4-10.2) mg/dL - Imaging and Cardiology EKG: image reviewed Echo: pending - Telemetry EKG Rhythm: Sinus Tachycardia - EKG Sinus rhythms and dysrhythmias: sinus tachycardia
--- NOTE | 2017-08-21 12:46 | Consultation ---
HISTORY OF PRESENT ILLNESS: The patient is a severely autistic 62-year-old who presents with fevers and chills and evidence of sepsis. He has significant tachycardia and GI bleeding. He was found on CT scan to have a large bladder stone as well with chronic indwelling catheter. He has some mild lower abdominal discomfort, nothing severe. He has chronic bladder inflammation, chronic cystitis and renal cysts with small kidney stone, no obstruction. PAST MEDICAL HISTORY: Severe autism, could not obtain a history or communicate with him. He has a history based on the chart DVT and recurrent urinary tract infection. SOCIAL HISTORY: As mentioned above. PAST SURGICAL HISTORY: Denied. ALLERGIES: Negative. MEDICATIONS: He is on Zofran, Eliquis, vitamins. REVIEW OF SYSTEMS: Unobtainable. PHYSICAL EXAMINATION: GENERAL: He is in no active distress, a little discomfort. ABDOMEN: Soft, nondistended. Minimal suprapubic discomfort. Montiel is draining clear. GENITALIA: Unremarkable. Montiel is intact. RECTAL: Could not do a digital rectal exam. At times, he can be poorly cooperative. IMPRESSION: Large bladder stone. We need to remove this. We could try it cystoscopically, may need an open, it is almost 3 cm, but at this point he has GI bleeding, cardiac issues and infection, he needs to be treated before we would make an attempt to remove the stone. This could be done in a later day. JOB# [id number] JACKI/CARLYN
[2017-08-21] MEDS: PROTONIX IV SCH (22:11)
[2017-08-22] MEDS: D5W 1,000 ML IV SCH ×2 (04:08→22:31)
[2017-08-22] MEDS: ZOSYN/NS 3.375GM/50ML 3.375 GM/50 ML BAG IV SCH ×4 (04:08→22:31)
[2017-08-22 06:09] LABS: Hematocrit 32.7 % (35.5-45.6); Hemoglobin 10.6 gm/dl (11.8-15.2); Mean Corpuscular HGB Conc 32 % (32-34); Mean Corpuscular Hemoglobin 26 pg (28-32); Mean Corpuscular Volume 81 fl (84-94); Red Blood Count 4.05 M/mm3 (3.65-5.03); Red Cell Distribution Width 17.2 % (13.2-15.2)
[2017-08-22 06:16] LABS: BUN/Creatinine Ratio 29; Blood Urea Nitrogen 29 mg/dL (9-20); Calcium 8.2 mg/dL (8.4-10.2); Hemolysis Index 7
[2017-08-22 06:27] LABS: Platelet Count 99 K/mm3 (140-440)
[2017-08-22] MEDS ORDERED: WATER FOR IRRIG STERILE IR ONE (08:59)
--- NOTE | 2017-08-22 09:35 | Anesthesia Day of Surgery ---
Anesthesia Day of Surgery - Day of Surgery Patient Examined: Yes Patient H&P Reviewed: Yes Patient is NPO: Yes
--- NOTE | 2017-08-22 09:35 | Progress Note ---
Assessment and Plan Assessment: Sinus tachycardia-->physiologic Sepsis due to complicated UTI Acute kidney injury Anemia/Coffee ground emesis History of DVT on Eliquis History of MRSA Autism Plan: Sinus tachycardia improved. Echo showed EF 50%. Resume Eliquis when okay with GI and urology. Stable cardiac status. Will see as needed. The patient has been seen in conjunction with Dr. Martinez who agrees with the assessment and plan of care. Subjective Date of service: 08/22/17 Principal diagnosis: coffee ground emesis, sinus tachycardia Interval history: The patient is resting in bed. Non verbal. No acute distress noted. Sinus tach on the monitor with HR 100s-110s. Objective Last Vital Signs Temp 98.2 F 08/22/17 10:09 Pulse 115 H 08/22/17 10:25 Resp 18 08/22/17 10:25 BP 108/71 08/22/17 10:25 Pulse Ox 97 08/22/17 10:25 - Physical Examination General: No Apparent Distress HEENT: Positive: Normocephaly, Mucus Membranes Moist Neck: Positive: neck supple, trachea midline Cardiac: Positive: Regular Rhythm, S1/S2, Tachycardia Lungs: Positive: clear to auscultation Neuro: Positive: Other (awake, non verbal) Abdomen: Positive: Soft, Active Bowel Sounds Skin: Negative: Rash Extremities: Present: normal. Absent: edema - Labs and Meds CBC 08/22/17 Range/Units 05:00 WBC 10.6 (4.5-11.0) K/mm3 RBC 4.05 (3.65-5.03) M/mm3 Hgb 10.6 L (11.8-15.2) gm/dl Hct 32.7 L (35.5-45.6) % Plt Count 99 L (140-440) K/mm3 Comprehensive Metabolic Panel 08/22/17 Range/Units 05:00 Sodium 155 H (137-145) mmol/L Potassium 3.6 (3.6-5.0) mmol/L Chloride 115.8 H (98-107) mmol/L Carbon Dioxide 25 (22-30) mmol/L BUN 29 H (9-20) mg/dL Creatinine 1.0 (0.8-1.5) mg/dL Glucose 127 H (75-100) mg/dL Calcium 8.2 L (8.4-10.2) mg/dL - Imaging and Cardiology EKG: image reviewed Echo: report reviewed (08/2017: TDS, EF 50%) - Telemetry EKG Rhythm: Sinus Tachycardia - EKG Sinus rhythms and dysrhythmias: sinus tachycardia
--- NOTE | 2017-08-22 09:35 | Anesthesia Consultation ---
Anesthesia Consult and Med Hx Date of service: 08/22/17 - Airway Anesthetic Teeth Evaluation: Good ROM Head & Neck: Adequate Mental/Hyoid Distance: Adequate Mallampati Class: Class II Intubation Access Assessment: Probably Good - Pulmonary Exam CTA: Yes - Cardiac Exam Cardiac Exam: RRR - Pre-Operative Health Status ASA Pre-Surgery Classification: ASA3 Proposed Anesthetic Plan: MAC (HX of DVT) - Cardiovascular System Hx Hypertension: Yes - Central Nervous System Hx Psychiatric Problems: Yes (autism) - Additional Comments Anesthesia Medical History Comments: HX OF DVT
[2017-08-22] MEDS ORDERED: AMIDATE IV ONE (09:37)
[2017-08-22] MEDS ORDERED: NACL 0.9% 1000 ML 1,000 ML IV SCH (10:00)
[2017-08-22] MEDS ORDERED: VERSED ONE (10:07)
--- NOTE | 2017-08-22 10:07 | Post Operative Note ---
Pre-op diagnosis: coffee ground emesis Post-op diagnosis: other (Normal exam) Findings: 1. Normal EGD Procedure: EGD Anesthesia: MAC Surgeon: GARRETT PHILLIP Estimated blood loss: none Pathology: none Condition: stable Disposition: floor (Okay to resume Eliquis. Will sign off.)
--- NOTE | 2017-08-22 10:28 | Operative Report ---
UPPER ENDOSCOPY REPORT PROCEDURE: Upper endoscopy. PREOPERATIVE DIAGNOSIS: Coffee ground emesis. POSTOPERATIVE DIAGNOSIS: Normal upper endoscopy. SEDATION: MAC by Anesthesia. HISTORY: The patient is a 62-year-old man with autism, who presented with coffee-ground emesis. He is on Eliquis. His hemoglobin has been stable and his rectal exam revealed no evidence of eulalio GI bleeding. Because of the need to be on Eliquis, upper endoscopy was performed to assess coffee ground emesis. Procedure, indications, risks, and benefits were explained and consent was obtained from the patient's family. The patient was placed in left lateral decubitus position and sedated. [employer] video upper endoscope was passed through the mouth and oropharynx into the descending duodenum. Scope was then gradually withdrawn with close inspection of mucosa. FINDINGS: 1. Normal appearing esophagus with sharp Z-line located at 40 cm. 2. Normal appearing gastric antrum, fundus, body, and cardia. 3. Normal appearing duodenal bulb and duodenum. 4. No evidence of bleeding noted. The patient tolerated procedure well. He did have tachycardia requiring esmolol. There were no other immediate complications. IMPRESSION: Normal upper endoscopy with no evidence of bleeding source. RECOMMENDATIONS: May resume Eliquis. JOB# [id number] HRC/NTS
--- NOTE | 2017-08-22 11:45 | Progress Note ---
Assessment and Plan Assessment and plan: Sepsis due to complicated UTI. Patient still awaiting ICU bed. BP stable, tachy is less. Continue Zosyn and Vancomycin iv. Blood cultures drawn. No growth to date Acute GI bleed with coffee ground emesis yesterday. EGD done today was normal. Resume diet. OK to resume Eliquis as per GI. I discussed with Dr. Diaz. Complicated UTI. He has indwelling catheter. Consulted and discussed with Dr. Gilmore Leukocytosis due to sepsis/UTI. Hematuria. He has history of kidney stone. CT Abd/pelvis . Sinus tachycardia. May be due to dehydration. Will continue iv fluids. JET due to vasomotor nephropathy, improved. Cr 1.0 today from 1.7 on admission. He was given Normal saline bolus in ED. Continue iv fluids Autism. 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 Place on contact isolation Chronic DVT. Hold Eliquis util after workup Full code status History Interval history: No more fever, Had EGD today Still has tachycardia but less Hospitalist Physical - Physical exam Narrative exam: GEN APPEARANCE : Not in acute distress, lying in bed, Obese HEENT: Normocephalic, Atraumatic NECK : supple, no JVD LUNGS: Clear to auscultation bilaterally, no rales, no wheeze HEART: S1 and S2 regular, tachy, no murmurs, rubs or gallop ABD: Soft, non tender, non distended, normal bowel sounds EXT: No edema, no clubbing, no cyanosis, no cyanosis NEURO: Lethargic, has Autism, follows commands : has indwelling nagy catheter - Constitutional Vitals: Temp Pulse Resp BP Pulse Ox 98.2 F 115 H 18 108/71 97 08/22/17 10:09 08/22/17 10:25 08/22/17 10:25 08/22/17 10:25 08/22/17 10:25 General appearance: Present: no acute distress Results - Labs CBC & Chem 7: 08/22/17 05:00 08/22/17 05:00 Labs: Laboratory Last Values WBC 10.6 K/mm3 (4.5-11.0) 08/22/17 05:00 RBC 4.05 M/mm3 (3.65-5.03) 08/22/17 05:00 Hgb 10.6 gm/dl (11.8-15.2) L 08/22/17 05:00 Hct 32.7 % (35.5-45.6) L 08/22/17 05:00 MCV 81 fl (84-94) L 08/22/17 05:00 MCH 26 pg (28-32) L 08/22/17 05:00 MCHC 32 % (32-34) 08/22/17 05:00 RDW 17.2 % (13.2-15.2) H 08/22/17 05:00 Plt Count 99 K/mm3 (140-440) L 08/22/17 05:00 Add Manual Diff Complete 08/21/17 03:45 Total Counted 100 08/21/17 03:45 Seg Neutrophils % Activity Aid 08/21/17 03:45 Seg Neuts % (Manual) 31.0 % (40.0-70.0) L 08/21/17 03:45 Band Neutrophils % 64.0 % 08/21/17 03:45 Lymphocytes % (Manual) 3.0 % (13.4-35.0) L 08/21/17 03:45 Reactive Lymphs % (Man) 0 % 08/21/17 03:45 Monocytes % (Manual) 2.0 % (0.0-7.3) 08/21/17 03:45 Eosinophils % (Manual) 0 % (0.0-4.3) 08/21/17 03:45 Basophils % (Manual) 0 % (0.0-1.8) 08/21/17 03:45 Metamyelocytes % 0 % 08/21/17 03:45 Myelocytes % 0 % 08/21/17 03:45 Promyelocytes % 0 % 08/21/17 03:45 Blast Cells % 0 % 08/21/17 03:45 Nucleated RBC % Not Reportable 08/21/17 03:45 Seg Neutrophils # Man 4.2 K/mm3 (1.8-7.7) 08/21/17 03:45 Band Neutrophils # 8.8 K/mm3 08/21/17 03:45 Lymphocytes # (Manual) 0.4 K/mm3 (1.2-5.4) L 08/21/17 03:45 Abs React Lymphs (Man) 0.0 K/mm3 08/21/17 03:45 Monocytes # (Manual) 0.3 K/mm3 (0.0-0.8) 08/21/17 03:45 Eosinophils # (Manual) 0.0 K/mm3 (0.0-0.4) 08/21/17 03:45 Basophils # (Manual) 0.0 K/mm3 (0.0-0.1) 08/21/17 03:45 Metamyelocytes # 0.0 K/mm3 08/21/17 03:45 Myelocytes # 0.0 K/mm3 08/21/17 03:45 Promyelocytes # 0.0 K/mm3 08/21/17 03:45 Blast Cells # 0.0 K/mm3 08/21/17 03:45 WBC Morphology Not Reportable 08/21/17 03:45 Hypersegmented Neuts Not Reportable 08/21/17 03:45 Hyposegmented Neuts Not Reportable 08/21/17 03:45 Hypogranular Neuts Not Reportable 08/21/17 03:45 Smudge Cells Not Reportable 08/21/17 03:45 Toxic Granulation Not Reportable 08/21/17 03:45 Toxic Vacuolation Not Reportable 08/21/17 03:45 Dohle Bodies Few 08/21/17 03:45 Pelger-Huet Anomaly Not Reportable 08/21/17 03:45 Ashley Rods Not Reportable 08/21/17 03:45 Platelet Estimate Consistent w auto 08/21/17 03:45 Clumped Platelets Not Reportable 08/21/17 03:45 Plt Clumps, EDTA Not Reportable 08/21/17 03:45 Large Platelets Not Reportable 08/21/17 03:45 Giant Platelets Not Reportable 08/21/17 03:45 Platelet Satelliting Not Reportable 08/21/17 03:45 Plt Morphology Comment Not Reportable 08/21/17 03:45 RBC Morphology Not Reportable 08/21/17 03:45 Dimorphic RBCs Not Reportable 08/21/17 03:45 Polychromasia Not Reportable 08/21/17 03:45 Hypochromasia 1+ 08/21/17 03:45 Poikilocytosis Not Reportable 08/21/17 03:45 Anisocytosis Not Reportable 08/21/17 03:45 Microcytosis Few 08/21/17 03:45 Macrocytosis Not Reportable 08/21/17 03:45 Spherocytes Few 08/21/17 03:45 Pappenheimer Bodies Not Reportable 08/21/17 03:45 Sickle Cells Not Reportable 08/21/17 03:45 Target Cells Not Reportable 08/21/17 03:45 Tear Drop Cells Not Reportable 08/21/17 03:45 Ovalocytes Not Reportable 08/21/17 03:45 Helmet Cells Not Reportable 08/21/17 03:45 [place] Bodies Not Reportable 08/21/17 03:45 [place] Rings Not Reportable 08/21/17 03:45 [place] Cells Not Reportable 08/21/17 03:45 Bite Cells Not Reportable 08/21/17 03:45 Crenated Cell Not Reportable 08/21/17 03:45 Elliptocytes Not Reportable 08/21/17 03:45 Acanthocytes (Spur) Not Reportable 08/21/17 03:45 Rouleaux Not Reportable 08/21/17 03:45 Hemoglobin C Crystals Not Reportable 08/21/17 03:45 Schistocytes Not Reportable 08/21/17 03:45 Malaria parasites Not Reportable 08/21/17 03:45 Riaz Bodies Not Reportable 08/21/17 03:45 Hem Pathologist Commnt No 08/21/17 03:45 PT 18.7 Sec. (12.2-14.9) H 08/20/17 09:36 INR 1.48 (0.87-1.13) H 08/20/17 09:36 APTT 37.3 Sec. (24.2-36.6) H 08/20/17 09:36 VBG pH 7.456 (7.320-7.420) H 08/20/17 09:36 Sodium 155 mmol/L (137-145) H 08/22/17 05:00 Potassium 3.6 mmol/L (3.6-5.0) 08/22/17 05:00 Chloride 115.8 mmol/L (98-107) H 08/22/17 05:00 Carbon Dioxide 25 mmol/L (22-30) 08/22/17 05:00 Anion Gap 18 mmol/L 08/22/17 05:00 BUN 29 mg/dL (9-20) H 08/22/17 05:00 Creatinine 1.0 mg/dL (0.8-1.5) 08/22/17 05:00 Estimated GFR > 60 ml/min 08/22/17 05:00 BUN/Creatinine Ratio 29 % 08/22/17 05:00 Glucose 127 mg/dL (75-100) H 08/22/17 05:00 POC Glucose 117 (70-105) H 08/21/17 21:16 Lactic Acid 3.10 mmol/L (0.7-2.0) H* 08/20/17 13:52 Calcium 8.2 mg/dL (8.4-10.2) L 08/22/17 05:00 Phosphorus 2.70 mg/dL (2.5-4.5) 08/20/17 13:52 Magnesium 1.60 mg/dL (1.7-2.3) L 08/20/17 13:52 Total Bilirubin 1.00 mg/dL (0.1-1.2) 08/20/17 09:36 AST 25 units/L (5-40) 08/20/17 09:36 ALT 23 units/L (7-56) 08/20/17 09:36 Alkaline Phosphatase 75 units/L (35-129) 08/20/17 09:36 Total Creatine Kinase 295 units/L (55-170) H 08/20/17 13:52 CK-MB (CK-2) 3.5 ng/mL (0.0-4.0) 08/20/17 13:52 CK-MB (CK-2) Rel Index 1.1 (0-4) 08/20/17 13:52 Troponin T < 0.010 ng/mL (0.00-0.029) 08/20/17 13:52 Total Protein 8.3 g/dL (6.3-8.2) H 08/20/17 09:36 Albumin 3.9 g/dL (3.9-5) 08/20/17 09:36 Albumin/Globulin Ratio 0.9 % 08/20/17 09:36 Lipase 9 units/L (13-60) L 08/20/17 09:45 Urine Color [place] (Yellow) 08/20/17 Unknown Urine Turbidity Turbid (Clear) 08/20/17 Unknown Urine pH 5.0 (5.0-7.0) 08/20/17 Unknown Ur Specific [place] 1.016 (1.003-1.030) 08/20/17 Unknown Urine Protein 30 mg/dl mg/dL (Negative) 08/20/17 Unknown Urine Glucose (UA) 50 mg/dL (Negative) 08/20/17 Unknown Urine Ketones Neg mg/dL (Negative) 08/20/17 Unknown Urine Blood Lg (Negative) 08/20/17 Unknown Urine Nitrite Neg (Negative) 08/20/17 Unknown Urine Bilirubin Neg (Negative) 08/20/17 Unknown Urine Urobilinogen < 2.0 mg/dL (<2.0) 08/20/17 Unknown Ur Leukocyte Esterase Mod (Negative) 08/20/17 Unknown Urine WBC (Auto) > 182.0 /HPF (0.0-6.0) H 08/20/17 Unknown Urine RBC (Auto) > 182.0 /HPF (0.0-6.0) 08/20/17 Unknown Urine Bacteria (Auto) 4+ /HPF (Negative) 08/20/17 Unknown Blood Type O POSITIVE 08/20/17 18:18 Antibody Screen Negative 08/20/17 18:18
[2017-08-22] MEDS: PROTONIX IV SCH (12:07)
--- NOTE | 2017-08-22 15:47 | Progress Note ---
Assessment and Plan gu tx after fully cleared Subjective Date of service: 08/22/17 Principal diagnosis: coffee ground emesis, sinus tachycardia Objective - Constitutional Vitals: Vital Signs - 12hr 08/22/17 08/22/17 08/22/17 04:35 04:39 07:15 Temperature 97.5 F L 97.5 F L Pulse Rate 105 H Respiratory 20 Rate Blood Pressure 101/78 117/78 Blood Pressure [Left] O2 Sat by Pulse 62 L Oximetry 08/22/17 08/22/17 08/22/17 09:16 09:21 09:38 Temperature 99.4 F 99.4 F 97.6 F Pulse Rate 105 H 105 H 64 Respiratory 18 18 20 Rate Blood Pressure 109/69 109/69 Blood Pressure 117/78 [Left] O2 Sat by Pulse 97 97 96 Oximetry 08/22/17 08/22/17 08/22/17 10:09 10:18 10:25 Temperature 98.2 F Pulse Rate 126 H 108 H 115 H Respiratory 17 18 Rate Blood Pressure 154/107 108/71 Blood Pressure [Left] O2 Sat by Pulse 98 97 Oximetry - Labs CBC & Chem 7: 08/22/17 05:00 08/22/17 05:00 Labs: Abnormal lab results 08/21/17 08/22/17 08/22/17 Range/Units 21:16 05:00 05:00 Hgb 10.6 L (11.8-15.2) gm/dl Hct 32.7 L (35.5-45.6) % MCV 81 L (84-94) fl MCH 26 L (28-32) pg RDW 17.2 H (13.2-15.2) % Plt Count 99 L (140-440) K/mm3 Sodium 155 H (137-145) mmol/L Chloride 115.8 H (98-107) mmol/L BUN 29 H (9-20) mg/dL Glucose 127 H (75-100) mg/dL POC Glucose 117 H (70-105) Calcium 8.2 L (8.4-10.2) mg/dL
[2017-08-22] MEDS ORDERED: ELIQUIS PO SCH (22:00)
[2017-08-23] MEDS: ZOSYN/NS 3.375GM/50ML 3.375 GM/50 ML BAG IV SCH ×4 (04:50→21:29)
[2017-08-23 05:42] LABS: Hematocrit 28.1 % (35.5-45.6); Hemoglobin 9.3 gm/dl (11.8-15.2); Mean Corpuscular HGB Conc 33 % (32-34); Mean Corpuscular Hemoglobin 27 pg (28-32); Mean Corpuscular Volume 81 fl (84-94); Red Blood Count 3.48 M/mm3 (3.65-5.03); Red Cell Distribution Width 16.7 % (13.2-15.2)
[2017-08-23 06:15] LABS: Platelet Count 98 K/mm3 (140-440)
[2017-08-23 06:17] LABS: BUN/Creatinine Ratio 24; Blood Urea Nitrogen 24 mg/dL (9-20); Calcium 7.8 mg/dL (8.4-10.2); Hemolysis Index 9
[2017-08-23] MEDS: PROTONIX IV SCH (10:22)
[2017-08-23] MEDS: PROTONIX PO SCH (10:29)
--- NOTE | 2017-08-23 12:03 | Progress Note ---
Assessment and Plan Assessment and plan: Sepsis due to complicated UTI. Continue Zosyn and Vancomycin iv. Blood cultures drawn. No growth after 72hrs Acute GI bleed with coffee ground emesis yesterday. EGD done yesterday was normal. Resume diet. OK to resume Eliquis as per GI. I discussed with Dr. Diaz. Complicated UTI. He has indwelling catheter. He was evaluated by Dr. Napier and discussed with Dr. Gilmore Leukocytosis due to sepsis/UTI. Hematuria. He has history of kidney stone. CT Abd/pelvis . Sinus tachycardia. improving, heart rate now less than 100. Will continue iv fluids. JET due to vasomotor nephropathy, resolved. Cr 1.0 today from 1.7 on admission. Autism. 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 On contact isolation Chronic DVT. Hold Eliquis until after workup Full code status History Interval history: No more fever, Had EGD yesterday Heart rate improving Hospitalist Physical - Physical exam Narrative exam: GEN APPEARANCE : Not in acute distress, lying in bed, HEENT: Normocephalic, Atraumatic NECK : supple, no JVD LUNGS: Clear to auscultation bilaterally, no rales, no wheeze HEART: S1 and S2 regular, no murmurs, rubs or gallop ABD: Soft, non tender, non distended, normal bowel sounds EXT: No edema, no clubbing, no cyanosis, no cyanosis NEURO: Lethargic, has Autism, follows commands : has indwelling nagy catheter - Constitutional Vitals: Temp Pulse Resp BP Pulse Ox 98.3 F 100 H 18 133/80 95 08/23/17 09:33 08/23/17 10:00 08/23/17 10:00 08/23/17 09:33 08/23/17 09:33 General appearance: Present: no acute distress Results - Labs CBC & Chem 7: 08/23/17 05:03 08/23/17 05:03 Labs: Laboratory Last Values WBC 5.4 K/mm3 (4.5-11.0) 08/23/17 05:03 RBC 3.48 M/mm3 (3.65-5.03) L 08/23/17 05:03 Hgb 9.3 gm/dl (11.8-15.2) L 08/23/17 05:03 Hct 28.1 % (35.5-45.6) L 08/23/17 05:03 MCV 81 fl (84-94) L 08/23/17 05:03 MCH 27 pg (28-32) L 08/23/17 05:03 MCHC 33 % (32-34) 08/23/17 05:03 RDW 16.7 % (13.2-15.2) H 08/23/17 05:03 Plt Count 98 K/mm3 (140-440) L 08/23/17 05:03 Add Manual Diff Complete 08/21/17 03:45 Total Counted 100 08/21/17 03:45 Seg Neutrophils % Aeronautics Teacher 08/21/17 03:45 Seg Neuts % (Manual) 31.0 % (40.0-70.0) L 08/21/17 03:45 Band Neutrophils % 64.0 % 08/21/17 03:45 Lymphocytes % (Manual) 3.0 % (13.4-35.0) L 08/21/17 03:45 Reactive Lymphs % (Man) 0 % 08/21/17 03:45 Monocytes % (Manual) 2.0 % (0.0-7.3) 08/21/17 03:45 Eosinophils % (Manual) 0 % (0.0-4.3) 08/21/17 03:45 Basophils % (Manual) 0 % (0.0-1.8) 08/21/17 03:45 Metamyelocytes % 0 % 08/21/17 03:45 Myelocytes % 0 % 08/21/17 03:45 Promyelocytes % 0 % 08/21/17 03:45 Blast Cells % 0 % 08/21/17 03:45 Nucleated RBC % Not Reportable 08/21/17 03:45 Seg Neutrophils # Man 4.2 K/mm3 (1.8-7.7) 08/21/17 03:45 Band Neutrophils # 8.8 K/mm3 08/21/17 03:45 Lymphocytes # (Manual) 0.4 K/mm3 (1.2-5.4) L 08/21/17 03:45 Abs React Lymphs (Man) 0.0 K/mm3 08/21/17 03:45 Monocytes # (Manual) 0.3 K/mm3 (0.0-0.8) 08/21/17 03:45 Eosinophils # (Manual) 0.0 K/mm3 (0.0-0.4) 08/21/17 03:45 Basophils # (Manual) 0.0 K/mm3 (0.0-0.1) 08/21/17 03:45 Metamyelocytes # 0.0 K/mm3 08/21/17 03:45 Myelocytes # 0.0 K/mm3 08/21/17 03:45 Promyelocytes # 0.0 K/mm3 08/21/17 03:45 Blast Cells # 0.0 K/mm3 08/21/17 03:45 WBC Morphology Not Reportable 08/21/17 03:45 Hypersegmented Neuts Not Reportable 08/21/17 03:45 Hyposegmented Neuts Not Reportable 08/21/17 03:45 Hypogranular Neuts Not Reportable 08/21/17 03:45 Smudge Cells Not Reportable 08/21/17 03:45 Toxic Granulation Not Reportable 08/21/17 03:45 Toxic Vacuolation Not Reportable 08/21/17 03:45 Dohle Bodies Few 08/21/17 03:45 Pelger-Huet Anomaly Not Reportable 08/21/17 03:45 Ashley Rods Not Reportable 08/21/17 03:45 Platelet Estimate Consistent w auto 08/21/17 03:45 Clumped Platelets Not Reportable 08/21/17 03:45 Plt Clumps, EDTA Not Reportable 08/21/17 03:45 Large Platelets Not Reportable 08/21/17 03:45 Giant Platelets Not Reportable 08/21/17 03:45 Platelet Satelliting Not Reportable 08/21/17 03:45 Plt Morphology Comment Not Reportable 08/21/17 03:45 RBC Morphology Not Reportable 08/21/17 03:45 Dimorphic RBCs Not Reportable 08/21/17 03:45 Polychromasia Not Reportable 08/21/17 03:45 Hypochromasia 1+ 08/21/17 03:45 Poikilocytosis Not Reportable 08/21/17 03:45 Anisocytosis Not Reportable 08/21/17 03:45 Microcytosis Few 08/21/17 03:45 Macrocytosis Not Reportable 08/21/17 03:45 Spherocytes Few 08/21/17 03:45 Pappenheimer Bodies Not Reportable 08/21/17 03:45 Sickle Cells Not Reportable 08/21/17 03:45 Target Cells Not Reportable 08/21/17 03:45 Tear Drop Cells Not Reportable 08/21/17 03:45 Ovalocytes Not Reportable 08/21/17 03:45 Helmet Cells Not Reportable 08/21/17 03:45 [place] Bodies Not Reportable 08/21/17 03:45 [place] Rings Not Reportable 08/21/17 03:45 [place] Cells Not Reportable 08/21/17 03:45 Bite Cells Not Reportable 08/21/17 03:45 Crenated Cell Not Reportable 08/21/17 03:45 Elliptocytes Not Reportable 08/21/17 03:45 Acanthocytes (Spur) Not Reportable 08/21/17 03:45 Rouleaux Not Reportable 08/21/17 03:45 Hemoglobin C Crystals Not Reportable 08/21/17 03:45 Schistocytes Not Reportable 08/21/17 03:45 Malaria parasites Not Reportable 08/21/17 03:45 Riaz Bodies Not Reportable 08/21/17 03:45 Hem Pathologist Commnt No 08/21/17 03:45 PT 18.7 Sec. (12.2-14.9) H 08/20/17 09:36 INR 1.48 (0.87-1.13) H 08/20/17 09:36 APTT 37.3 Sec. (24.2-36.6) H 08/20/17 09:36 VBG pH 7.456 (7.320-7.420) H 08/20/17 09:36 Sodium 156 mmol/L (137-145) H 08/23/17 05:03 Potassium 3.5 mmol/L (3.6-5.0) L 08/23/17 05:03 Chloride 118.6 mmol/L (98-107) H 08/23/17 05:03 Carbon Dioxide 25 mmol/L (22-30) 08/23/17 05:03 Anion Gap 16 mmol/L 08/23/17 05:03 BUN 24 mg/dL (9-20) H 08/23/17 05:03 Creatinine 1.0 mg/dL (0.8-1.5) 08/23/17 05:03 Estimated GFR > 60 ml/min 08/23/17 05:03 BUN/Creatinine Ratio 24 % 08/23/17 05:03 Glucose 129 mg/dL (75-100) H 08/23/17 05:03 POC Glucose 123 (70-105) H 08/22/17 22:15 Lactic Acid 3.10 mmol/L (0.7-2.0) H* 08/20/17 13:52 Calcium 7.8 mg/dL (8.4-10.2) L 08/23/17 05:03 Phosphorus 2.70 mg/dL (2.5-4.5) 08/20/17 13:52 Magnesium 1.60 mg/dL (1.7-2.3) L 08/20/17 13:52 Total Bilirubin 1.00 mg/dL (0.1-1.2) 08/20/17 09:36 AST 25 units/L (5-40) 08/20/17 09:36 ALT 23 units/L (7-56) 08/20/17 09:36 Alkaline Phosphatase 75 units/L (35-129) 08/20/17 09:36 Total Creatine Kinase 295 units/L (55-170) H 08/20/17 13:52 CK-MB (CK-2) 3.5 ng/mL (0.0-4.0) 08/20/17 13:52 CK-MB (CK-2) Rel Index 1.1 (0-4) 08/20/17 13:52 Troponin T < 0.010 ng/mL (0.00-0.029) 08/20/17 13:52 Total Protein 8.3 g/dL (6.3-8.2) H 08/20/17 09:36 Albumin 3.9 g/dL (3.9-5) 08/20/17 09:36 Albumin/Globulin Ratio 0.9 % 08/20/17 09:36 Lipase 9 units/L (13-60) L 08/20/17 09:45 Urine Color [place] (Yellow) 08/20/17 Unknown Urine Turbidity Turbid (Clear) 08/20/17 Unknown Urine pH 5.0 (5.0-7.0) 08/20/17 Unknown Ur Specific [place] 1.016 (1.003-1.030) 08/20/17 Unknown Urine Protein 30 mg/dl mg/dL (Negative) 08/20/17 Unknown Urine Glucose (UA) 50 mg/dL (Negative) 08/20/17 Unknown Urine Ketones Neg mg/dL (Negative) 08/20/17 Unknown Urine Blood Lg (Negative) 08/20/17 Unknown Urine Nitrite Neg (Negative) 08/20/17 Unknown Urine Bilirubin Neg (Negative) 08/20/17 Unknown Urine Urobilinogen < 2.0 mg/dL (<2.0) 08/20/17 Unknown Ur Leukocyte Esterase Mod (Negative) 08/20/17 Unknown Urine WBC (Auto) > 182.0 /HPF (0.0-6.0) H 08/20/17 Unknown Urine RBC (Auto) > 182.0 /HPF (0.0-6.0) 08/20/17 Unknown Urine Bacteria (Auto) 4+ /HPF (Negative) 08/20/17 Unknown Blood Type O POSITIVE 08/20/17 18:18 Antibody Screen Negative 08/20/17 18:18
[2017-08-24] MEDS: ZOSYN/NS 3.375GM/50ML 3.375 GM/50 ML BAG IV SCH ×4 (04:04→21:03)
[2017-08-24 06:38] LABS: Hematocrit 28.9 % (35.5-45.6); Hemoglobin 9.2 gm/dl (11.8-15.2); Mean Corpuscular HGB Conc 32 % (32-34); Mean Corpuscular Volume 81 fl (84-94); Platelet Count 109 K/mm3 (140-440); Red Blood Count 3.58 M/mm3 (3.65-5.03); Red Cell Distribution Width 16.9 % (13.2-15.2)
[2017-08-24 06:50] LABS: Mean Corpuscular Hemoglobin 26 pg (28-32)
[2017-08-24 06:55] LABS: BUN/Creatinine Ratio 23; Blood Urea Nitrogen 16 mg/dL (9-20); Calcium 7.9 mg/dL (8.4-10.2); Hemolysis Index 125
[2017-08-24] MEDS: PROTONIX PO SCH (10:56)
[2017-08-24] MEDS: D5W 1,000 ML IV SCH (10:57)
--- NOTE | 2017-08-24 13:54 | Progress Note ---
Assessment and Plan Assessment and plan: Sepsis due to complicated UTI. Blood culture growing Gra neg rods, 1 in 2. Will repeat Blood cultures.. Consult ID Physician Continue Zosyn and Vancomycin iv. Acute GI bleed with coffee ground emesis on admission. EGD done was normal. Resume diet. OK to resume Eliquis as per GI. I discussed with Dr. Diaz. Complicated UTI. He has indwelling catheter. He was evaluated by Dr. Napier and discussed with Dr. Gilmore Large bladder stone. Urology following. Gallstones, asymptomatic Kidney cysts Nephrolithiasis Leukocytosis due to sepsis/UTI. Hematuria. He has history of kidney stone. CT Abd/pelvis . Sinus tachycardia. improving, heart rate now less than 100. Will continue iv fluids. JET due to vasomotor nephropathy, resolved. Cr 0.7 today from 1.7 on admission. Autism. 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 On contact isolation Chronic DVT. Hold Eliquis until after workup Full code status History Interval history: No more fever, Heart rate improving Hospitalist Physical - Physical exam Narrative exam: GEN APPEARANCE : Not in acute distress, lying in bed, HEENT: Normocephalic, Atraumatic NECK : supple, no JVD LUNGS: Clear to auscultation bilaterally, no rales, no wheeze HEART: S1 and S2 regular, no murmurs, rubs or gallop ABD: Soft, non tender, non distended, normal bowel sounds EXT: No edema, no clubbing, no cyanosis, no cyanosis NEURO: Lethargic, has Autism, follows commands : has indwelling nagy catheter - Constitutional Vitals: Temp Pulse Resp BP Pulse Ox 98.3 F 62 20 131/85 98 08/24/17 12:27 08/24/17 12:27 08/24/17 12:27 08/24/17 12:27 08/24/17 12:27 General appearance: Present: no acute distress Results - Labs CBC & Chem 7: 08/25/17 05:06 08/25/17 05:06 Labs: Laboratory Last Values WBC 4.8 K/mm3 (4.5-11.0) 08/24/17 05:52 RBC 3.58 M/mm3 (3.65-5.03) L 08/24/17 05:52 Hgb 9.2 gm/dl (11.8-15.2) L 08/24/17 05:52 Hct 28.9 % (35.5-45.6) L 08/24/17 05:52 MCV 81 fl (84-94) L 08/24/17 05:52 MCH 26 pg (28-32) L 08/24/17 05:52 MCHC 32 % (32-34) 08/24/17 05:52 RDW 16.9 % (13.2-15.2) H 08/24/17 05:52 Plt Count 109 K/mm3 (140-440) L 08/24/17 05:52 Add Manual Diff Complete 08/21/17 03:45 Total Counted 100 08/21/17 03:45 Seg Neutrophils % Security Alarm Technician 08/21/17 03:45 Seg Neuts % (Manual) 31.0 % (40.0-70.0) L 08/21/17 03:45 Band Neutrophils % 64.0 % 08/21/17 03:45 Lymphocytes % (Manual) 3.0 % (13.4-35.0) L 08/21/17 03:45 Reactive Lymphs % (Man) 0 % 08/21/17 03:45 Monocytes % (Manual) 2.0 % (0.0-7.3) 08/21/17 03:45 Eosinophils % (Manual) 0 % (0.0-4.3) 08/21/17 03:45 Basophils % (Manual) 0 % (0.0-1.8) 08/21/17 03:45 Metamyelocytes % 0 % 08/21/17 03:45 Myelocytes % 0 % 08/21/17 03:45 Promyelocytes % 0 % 08/21/17 03:45 Blast Cells % 0 % 08/21/17 03:45 Nucleated RBC % Not Reportable 08/21/17 03:45 Seg Neutrophils # Man 4.2 K/mm3 (1.8-7.7) 08/21/17 03:45 Band Neutrophils # 8.8 K/mm3 08/21/17 03:45 Lymphocytes # (Manual) 0.4 K/mm3 (1.2-5.4) L 08/21/17 03:45 Abs React Lymphs (Man) 0.0 K/mm3 08/21/17 03:45 Monocytes # (Manual) 0.3 K/mm3 (0.0-0.8) 08/21/17 03:45 Eosinophils # (Manual) 0.0 K/mm3 (0.0-0.4) 08/21/17 03:45 Basophils # (Manual) 0.0 K/mm3 (0.0-0.1) 08/21/17 03:45 Metamyelocytes # 0.0 K/mm3 08/21/17 03:45 Myelocytes # 0.0 K/mm3 08/21/17 03:45 Promyelocytes # 0.0 K/mm3 08/21/17 03:45 Blast Cells # 0.0 K/mm3 08/21/17 03:45 WBC Morphology Not Reportable 08/21/17 03:45 Hypersegmented Neuts Not Reportable 08/21/17 03:45 Hyposegmented Neuts Not Reportable 08/21/17 03:45 Hypogranular Neuts Not Reportable 08/21/17 03:45 Smudge Cells Not Reportable 08/21/17 03:45 Toxic Granulation Not Reportable 08/21/17 03:45 Toxic Vacuolation Not Reportable 08/21/17 03:45 Dohle Bodies Few 08/21/17 03:45 Pelger-Huet Anomaly Not Reportable 08/21/17 03:45 Ashley Rods Not Reportable 08/21/17 03:45 Platelet Estimate Consistent w auto 08/21/17 03:45 Clumped Platelets Not Reportable 08/21/17 03:45 Plt Clumps, EDTA Not Reportable 08/21/17 03:45 Large Platelets Not Reportable 08/21/17 03:45 Giant Platelets Not Reportable 08/21/17 03:45 Platelet Satelliting Not Reportable 08/21/17 03:45 Plt Morphology Comment Not Reportable 08/21/17 03:45 RBC Morphology Not Reportable 08/21/17 03:45 Dimorphic RBCs Not Reportable 08/21/17 03:45 Polychromasia Not Reportable 08/21/17 03:45 Hypochromasia 1+ 08/21/17 03:45 Poikilocytosis Not Reportable 08/21/17 03:45 Anisocytosis Not Reportable 08/21/17 03:45 Microcytosis Few 08/21/17 03:45 Macrocytosis Not Reportable 08/21/17 03:45 Spherocytes Few 08/21/17 03:45 Pappenheimer Bodies Not Reportable 08/21/17 03:45 Sickle Cells Not Reportable 08/21/17 03:45 Target Cells Not Reportable 08/21/17 03:45 Tear Drop Cells Not Reportable 08/21/17 03:45 Ovalocytes Not Reportable 08/21/17 03:45 Helmet Cells Not Reportable 08/21/17 03:45 [place] Bodies Not Reportable 08/21/17 03:45 [place] Rings Not Reportable 08/21/17 03:45 Jerry Cells Not Reportable 08/21/17 03:45 Bite Cells Not Reportable 08/21/17 03:45 Crenated Cell Not Reportable 08/21/17 03:45 Elliptocytes Not Reportable 08/21/17 03:45 Acanthocytes (Spur) Not Reportable 08/21/17 03:45 Rouleaux Not Reportable 08/21/17 03:45 Hemoglobin C Crystals Not Reportable 08/21/17 03:45 Schistocytes Not Reportable 08/21/17 03:45 Malaria parasites Not Reportable 08/21/17 03:45 Riaz Bodies Not Reportable 08/21/17 03:45 Hem Pathologist Commnt No 08/21/17 03:45 PT 18.7 Sec. (12.2-14.9) H 08/20/17 09:36 INR 1.48 (0.87-1.13) H 08/20/17 09:36 APTT 37.3 Sec. (24.2-36.6) H 08/20/17 09:36 VBG pH 7.456 (7.320-7.420) H 08/20/17 09:36 Sodium 147 mmol/L (137-145) H D 08/24/17 05:52 Potassium 4.0 mmol/L (3.6-5.0) 08/24/17 05:52 Chloride 111.4 mmol/L (98-107) H 08/24/17 05:52 Carbon Dioxide 24 mmol/L (22-30) 08/24/17 05:52 Anion Gap 16 mmol/L 08/24/17 05:52 BUN 16 mg/dL (9-20) 08/24/17 05:52 Creatinine 0.7 mg/dL (0.8-1.5) L 08/24/17 05:52 Estimated GFR > 60 ml/min 08/24/17 05:52 BUN/Creatinine Ratio 23 % 08/24/17 05:52 Glucose 117 mg/dL (75-100) H 08/24/17 05:52 POC Glucose 116 (70-105) H 08/23/17 22:13 Lactic Acid 3.10 mmol/L (0.7-2.0) H* 08/20/17 13:52 Calcium 7.9 mg/dL (8.4-10.2) L 08/24/17 05:52 Phosphorus 2.70 mg/dL (2.5-4.5) 08/20/17 13:52 Magnesium 1.60 mg/dL (1.7-2.3) L 08/20/17 13:52 Total Bilirubin 1.00 mg/dL (0.1-1.2) 08/20/17 09:36 AST 25 units/L (5-40) 08/20/17 09:36 ALT 23 units/L (7-56) 08/20/17 09:36 Alkaline Phosphatase 75 units/L (35-129) 08/20/17 09:36 Total Creatine Kinase 295 units/L (55-170) H 08/20/17 13:52 CK-MB (CK-2) 3.5 ng/mL (0.0-4.0) 08/20/17 13:52 CK-MB (CK-2) Rel Index 1.1 (0-4) 08/20/17 13:52 Troponin T < 0.010 ng/mL (0.00-0.029) 08/20/17 13:52 Total Protein 8.3 g/dL (6.3-8.2) H 08/20/17 09:36 Albumin 3.9 g/dL (3.9-5) 08/20/17 09:36 Albumin/Globulin Ratio 0.9 % 08/20/17 09:36 Lipase 9 units/L (13-60) L 08/20/17 09:45 Urine Color Lucila (Yellow) 08/20/17 Unknown Urine Turbidity Turbid (Clear) 08/20/17 Unknown Urine pH 5.0 (5.0-7.0) 08/20/17 Unknown Ur Specific [place] 1.016 (1.003-1.030) 08/20/17 Unknown Urine Protein 30 mg/dl mg/dL (Negative) 08/20/17 Unknown Urine Glucose (UA) 50 mg/dL (Negative) 08/20/17 Unknown Urine Ketones Neg mg/dL (Negative) 08/20/17 Unknown Urine Blood Lg (Negative) 08/20/17 Unknown Urine Nitrite Neg (Negative) 08/20/17 Unknown Urine Bilirubin Neg (Negative) 08/20/17 Unknown Urine Urobilinogen < 2.0 mg/dL (<2.0) 08/20/17 Unknown Ur Leukocyte Esterase Mod (Negative) 08/20/17 Unknown Urine WBC (Auto) > 182.0 /HPF (0.0-6.0) H 08/20/17 Unknown Urine RBC (Auto) > 182.0 /HPF (0.0-6.0) 08/20/17 Unknown Urine Bacteria (Auto) 4+ /HPF (Negative) 08/20/17 Unknown Blood Type O POSITIVE 08/20/17 18:18 Antibody Screen Negative 08/20/17 18:18
[2017-08-25] MEDS: ZOSYN/NS 3.375GM/50ML 3.375 GM/50 ML BAG IV SCH ×3 (03:30→16:05)
[2017-08-25] MEDS: D5W 1,000 ML IV SCH ×2 (03:30→18:04)
[2017-08-25 06:09] LABS: Hematocrit 27.4 % (35.5-45.6); Hemoglobin 8.5 gm/dl (11.8-15.2); Mean Corpuscular HGB Conc 31 % (32-34); Mean Corpuscular Volume 81 fl (84-94); Red Blood Count 3.37 M/mm3 (3.65-5.03); Red Cell Distribution Width 16.7 % (13.2-15.2)
[2017-08-25 06:17] LABS: Mean Corpuscular Hemoglobin 25 pg (28-32); Platelet Count 98 K/mm3 (140-440)
[2017-08-25 06:30] LABS: BUN/Creatinine Ratio 16; Blood Urea Nitrogen 13 mg/dL (9-20); Calcium 7.9 mg/dL (8.4-10.2); Hemolysis Index 2
[2017-08-25] MEDS: PROTONIX PO SCH (10:39)
--- NOTE | 2017-08-25 17:56 | Progress Note ---
Assessment and Plan Assessment and plan: Patient has Autism, lives in SNF. He also has history of hypertension, DVT lower ext, indwelling freitas, kidney stone. He was sent in because of fever and bloody urine. In ED was found to have Sepsis due to complicated UTI with indwelling catheter. He also has Sinus tachycardia, acute kidney injury. He has been on Eliquis for DVT lower extremities. Patient has Autism and cannot obtain history from him. History obtained from medical records and paper chart from [facility]. Sepsis due to complicated UTI. Blood culture growing Gra neg rods, 1 in 2. Repeated blood cultures were no growth at this time. Continue Zosyn and Vancomycin iv. Acute GI bleed with coffee ground emesis on admission. EGD done was normal. Resume diet. OK to resume Eliquis as per GI. discussed with Dr. Diaz. Complicated UTI. He has indwelling catheter. He was evaluated by Dr. Napier and discussed with Dr. Gilmore awaiting complete treatment of infectious process. We'll hold anticoagulation until discussed with urology. If no intervention while in house we'll resume anticoagulation. Large bladder stone. Urology following. Gallstones, asymptomatic Kidney cysts Nephrolithiasis Hypokalemia-replace Leukocytosis due to sepsis/UTI.-Leukocytosis resolved Hematuria. He has history of kidney stone. CT Abd/pelvis . Sinus tachycardia. improving, heart rate now less than 100. Will continue iv fluids. JET due to vasomotor nephropathy, resolved. Cr 0.7 today from 1.7 on admission. Autism. 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 On contact isolation Chronic DVT. Hold Eliquis until after workup Full code status History Interval history: Patient seen and examined this morning and remains in no acute distress. FREITAS still in place. 24 hour events reviewed with nursing staff no adverse event reported. Hospitalist Physical - Physical exam Narrative exam: VITAL SIGNS: Reviewed. GENERAL: The patient appeared well nourished and normally developed. Vital signs as documented. HEAD: No signs of head trauma. EYES: Pupils are equal. Extraocular motions intact. EARS: Hearing grossly intact. MOUTH: Oropharynx is normal. NECK: No adenopathy, no JVD. CHEST: Chest with clear breath sounds bilaterally. No wheezes, rales, or rhonchi. CARDIAC: Regular rate and rhythm. S1 and S2, without murmurs, gallops, or rubs. VASCULAR: No Edema. Peripheral pulses normal and equal in all extremities. ABDOMEN: Soft, without detectable tenderness. No sign of distention. No rebound or guarding, and no masses palpated. Bowel Sounds normal. MUSCULOSKELETAL: Good range of motion of all major joints. Extremities without clubbing, cyanosis or edema. NEUROLOGIC EXAM: Awake. Autistic not speaking much.. No focal sensory or strength deficits. Unable to assess speech, Follows some commands. PSYCHIATRIC: Mood normal. SKIN: No rash or lesions. - Constitutional Vitals: Temp Pulse Resp BP Pulse Ox 97.7 F 86 18 126/80 99 08/25/17 08:46 08/25/17 08:46 08/25/17 08:46 08/25/17 08:46 08/25/17 08:46 General appearance: Present: no acute distress Results - Labs CBC & Chem 7: 08/25/17 05:06 08/25/17 05:06 Labs: Laboratory Last Values WBC 4.9 K/mm3 (4.5-11.0) 08/25/17 05:06 RBC 3.37 M/mm3 (3.65-5.03) L 08/25/17 05:06 Hgb 8.5 gm/dl (11.8-15.2) L 08/25/17 05:06 Hct 27.4 % (35.5-45.6) L 08/25/17 05:06 MCV 81 fl (84-94) L 08/25/17 05:06 MCH 25 pg (28-32) L 08/25/17 05:06 MCHC 31 % (32-34) L 08/25/17 05:06 RDW 16.7 % (13.2-15.2) H 08/25/17 05:06 Plt Count 98 K/mm3 (140-440) L 08/25/17 05:06 Add Manual Diff Complete 08/21/17 03:45 Total Counted 100 08/21/17 03:45 Seg Neutrophils % Dramatic Coach 08/21/17 03:45 Seg Neuts % (Manual) 31.0 % (40.0-70.0) L 08/21/17 03:45 Band Neutrophils % 64.0 % 08/21/17 03:45 Lymphocytes % (Manual) 3.0 % (13.4-35.0) L 08/21/17 03:45 Reactive Lymphs % (Man) 0 % 08/21/17 03:45 Monocytes % (Manual) 2.0 % (0.0-7.3) 08/21/17 03:45 Eosinophils % (Manual) 0 % (0.0-4.3) 08/21/17 03:45 Basophils % (Manual) 0 % (0.0-1.8) 08/21/17 03:45 Metamyelocytes % 0 % 08/21/17 03:45 Myelocytes % 0 % 08/21/17 03:45 Promyelocytes % 0 % 08/21/17 03:45 Blast Cells % 0 % 08/21/17 03:45 Nucleated RBC % Not Reportable 08/21/17 03:45 Seg Neutrophils # Man 4.2 K/mm3 (1.8-7.7) 08/21/17 03:45 Band Neutrophils # 8.8 K/mm3 08/21/17 03:45 Lymphocytes # (Manual) 0.4 K/mm3 (1.2-5.4) L 08/21/17 03:45 Abs React Lymphs (Man) 0.0 K/mm3 08/21/17 03:45 Monocytes # (Manual) 0.3 K/mm3 (0.0-0.8) 08/21/17 03:45 Eosinophils # (Manual) 0.0 K/mm3 (0.0-0.4) 08/21/17 03:45 Basophils # (Manual) 0.0 K/mm3 (0.0-0.1) 08/21/17 03:45 Metamyelocytes # 0.0 K/mm3 08/21/17 03:45 Myelocytes # 0.0 K/mm3 08/21/17 03:45 Promyelocytes # 0.0 K/mm3 08/21/17 03:45 Blast Cells # 0.0 K/mm3 08/21/17 03:45 WBC Morphology Not Reportable 08/21/17 03:45 Hypersegmented Neuts Not Reportable 08/21/17 03:45 Hyposegmented Neuts Not Reportable 08/21/17 03:45 Hypogranular Neuts Not Reportable 08/21/17 03:45 Smudge Cells Not Reportable 08/21/17 03:45 Toxic Granulation Not Reportable 08/21/17 03:45 Toxic Vacuolation Not Reportable 08/21/17 03:45 Dohle Bodies Few 08/21/17 03:45 Pelger-Huet Anomaly Not Reportable 08/21/17 03:45 Ashley Rods Not Reportable 08/21/17 03:45 Platelet Estimate Consistent w auto 08/21/17 03:45 Clumped Platelets Not Reportable 08/21/17 03:45 Plt Clumps, EDTA Not Reportable 08/21/17 03:45 Large Platelets Not Reportable 08/21/17 03:45 Giant Platelets Not Reportable 08/21/17 03:45 Platelet Satelliting Not Reportable 08/21/17 03:45 Plt Morphology Comment Not Reportable 08/21/17 03:45 RBC Morphology Not Reportable 08/21/17 03:45 Dimorphic RBCs Not Reportable 08/21/17 03:45 Polychromasia Not Reportable 08/21/17 03:45 Hypochromasia 1+ 08/21/17 03:45 Poikilocytosis Not Reportable 08/21/17 03:45 Anisocytosis Not Reportable 08/21/17 03:45 Microcytosis Few 08/21/17 03:45 Macrocytosis Not Reportable 08/21/17 03:45 Spherocytes Few 08/21/17 03:45 Pappenheimer Bodies Not Reportable 08/21/17 03:45 Sickle Cells Not Reportable 08/21/17 03:45 Target Cells Not Reportable 08/21/17 03:45 Tear Drop Cells Not Reportable 08/21/17 03:45 Ovalocytes Not Reportable 08/21/17 03:45 Helmet Cells Not Reportable 08/21/17 03:45 [place] Bodies Not Reportable 08/21/17 03:45 [place] Rings Not Reportable 08/21/17 03:45 Jerry Cells Not Reportable 08/21/17 03:45 Bite Cells Not Reportable 08/21/17 03:45 Crenated Cell Not Reportable 08/21/17 03:45 Elliptocytes Not Reportable 08/21/17 03:45 Acanthocytes (Spur) Not Reportable 08/21/17 03:45 Rouleaux Not Reportable 08/21/17 03:45 Hemoglobin C Crystals Not Reportable 08/21/17 03:45 Schistocytes Not Reportable 08/21/17 03:45 Malaria parasites Not Reportable 08/21/17 03:45 Riaz Bodies Not Reportable 08/21/17 03:45 Hem Pathologist Commnt No 08/21/17 03:45 PT 18.7 Sec. (12.2-14.9) H 08/20/17 09:36 INR 1.48 (0.87-1.13) H 08/20/17 09:36 APTT 37.3 Sec. (24.2-36.6) H 08/20/17 09:36 VBG pH 7.456 (7.320-7.420) H 08/20/17 09:36 Sodium 145 mmol/L (137-145) 08/25/17 05:06 Potassium 3.1 mmol/L (3.6-5.0) L D 08/25/17 05:06 Chloride 108.0 mmol/L (98-107) H 08/25/17 05:06 Carbon Dioxide 22 mmol/L (22-30) 08/25/17 05:06 Anion Gap 18 mmol/L 08/25/17 05:06 BUN 13 mg/dL (9-20) 08/25/17 05:06 Creatinine 0.8 mg/dL (0.8-1.5) 08/25/17 05:06 Estimated GFR > 60 ml/min 08/25/17 05:06 BUN/Creatinine Ratio 16 % 08/25/17 05:06 Glucose 98 mg/dL (75-100) 08/25/17 05:06 POC Glucose 103 (70-105) 08/25/17 17:02 Lactic Acid 3.10 mmol/L (0.7-2.0) H* 08/20/17 13:52 Calcium 7.9 mg/dL (8.4-10.2) L 08/25/17 05:06 Phosphorus 2.70 mg/dL (2.5-4.5) 08/20/17 13:52 Magnesium 1.60 mg/dL (1.7-2.3) L 08/20/17 13:52 Total Bilirubin 1.00 mg/dL (0.1-1.2) 08/20/17 09:36 AST 25 units/L (5-40) 08/20/17 09:36 ALT 23 units/L (7-56) 08/20/17 09:36 Alkaline Phosphatase 75 units/L (35-129) 08/20/17 09:36 Total Creatine Kinase 295 units/L (55-170) H 08/20/17 13:52 CK-MB (CK-2) 3.5 ng/mL (0.0-4.0) 08/20/17 13:52 CK-MB (CK-2) Rel Index 1.1 (0-4) 08/20/17 13:52 Troponin T < 0.010 ng/mL (0.00-0.029) 08/20/17 13:52 Total Protein 8.3 g/dL (6.3-8.2) H 08/20/17 09:36 Albumin 3.9 g/dL (3.9-5) 08/20/17 09:36 Albumin/Globulin Ratio 0.9 % 08/20/17 09:36 Lipase 9 units/L (13-60) L 08/20/17 09:45 Urine Color [place] (Yellow) 08/20/17 Unknown Urine Turbidity Turbid (Clear) 08/20/17 Unknown Urine pH 5.0 (5.0-7.0) 08/20/17 Unknown Ur Specific [place] 1.016 (1.003-1.030) 08/20/17 Unknown Urine Protein 30 mg/dl mg/dL (Negative) 08/20/17 Unknown Urine Glucose (UA) 50 mg/dL (Negative) 08/20/17 Unknown Urine Ketones Neg mg/dL (Negative) 08/20/17 Unknown Urine Blood Lg (Negative) 08/20/17 Unknown Urine Nitrite Neg (Negative) 08/20/17 Unknown Urine Bilirubin Neg (Negative) 08/20/17 Unknown Urine Urobilinogen < 2.0 mg/dL (<2.0) 08/20/17 Unknown Ur Leukocyte Esterase Mod (Negative) 08/20/17 Unknown Urine WBC (Auto) > 182.0 /HPF (0.0-6.0) H 08/20/17 Unknown Urine RBC (Auto) > 182.0 /HPF (0.0-6.0) 08/20/17 Unknown Urine Bacteria (Auto) 4+ /HPF (Negative) 08/20/17 Unknown Blood Type O POSITIVE 08/20/17 18:18 Antibody Screen Negative 08/20/17 18:18
[2017-08-25] MEDS ORDERED: K-DUR PO ONE (18:45)
[2017-08-26] MEDS: D5W 1,000 ML IV SCH (09:50)
[2017-08-26] MEDS: PROTONIX PO SCH (09:50)
[2017-08-26] MEDS ORDERED: LEVAQUIN 750MG/150ML 750 MG/150 ML BAG IV SCH (10:00)
--- NOTE | 2017-08-26 10:00 | Discharge Summary ---
Providers - Providers Date of Admission: 08/20/17 15:45 Attending physician: SALLY GARLAND MD 08/20/17 13:08 Consult to Physician [CONS] Routine Consulting Provider: KATE GREENFIELD Reason For Exam: Hematuria, complicated UTI Place consult to:: voice message system Notified:: yes Phone number called:: [phone] Was contact made?: Yes If yes, spoke with:: message left Time called:: 17:29 08/20/17 13:10 Consult to Physician [CONS] Routine Consulting Provider: GARRETT PHILLIP Reason For Exam: coffee ground emesis Place consult to:: Charlotte Ortiz Notified:: yes Phone number called:: overhead page Was contact made?: Yes If yes, spoke with:: Charlotte Time called:: 13:35 08/21/17 14:23 Consult to Physician [CONS] Routine Consulting Provider: TIA LINTON Reason For Exam: Aeronautical Engineer care. GI bleed,sepsis,tachy Place consult to:: Dr. Linton Notified:: Nori MAIN Was contact made?: Yes If yes, spoke with:: Nori spoke with Dr. Linton Time called:: 16:10 Primary care physician: TERESA LEE Hospitalization Reason for admission: sepsis Condition: Stable Hospital course: Patient has Autism, lives in SNF. He also has history of hypertension, DVT lower ext, indwelling nagy, kidney stone. He was sent in because of fever and bloody urine. In ED was found to have Sepsis due to complicated UTI with indwelling catheter. He also has Sinus tachycardia, acute kidney injury. He has been on Eliquis for DVT lower extremities. Patient has Autism and cannot obtain history from him. History obtained from medical records and paper chart from [facility]. Patient then EGD that was done and was normal was recommended to sunshinee Michael Gamez. The urologist to see the patient and recommended the patient to follow up with them outpatient for further evaluation. Cultures grew Enterobacter and was treated basal sensitivity and patient will complete a 14 day treatment for bacteremia. He is clinically stable at this point for discharge back to the [facility] facility. Discharge Diagnosis Sepsis due to acute cystitis. secondary to enterobactea cloacae Acute GI bleed Complicated UTI. Large bladder stone. Gallstones, asymptomatic Kidney cysts Nephrolithiasis Hypokalemia Anemia of chronic disease Leukocytosis due to sepsis/UTI. Hematuria. Sinus tachycardia. JET due to vasomotor nephropathy, Autism. 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 On contact isolation Chronic DVT. Disposition: [id number] Time spent for discharge: 35 mins Core Measure Documentation - Palliative Care Palliative Care/ Comfort Measures: Not Applicable - Core Measures Any of the following diagnoses?: none - VTE Discharge Requirements Deep Vein Thrombosis/Pulmonary Embolism Present on Admission: No Exam - Physical Exam Narrative exam: VITAL SIGNS: Reviewed. GENERAL: The patient appeared well nourished and normally developed. Vital signs as documented. HEAD: No signs of head trauma. EYES: Pupils are equal. Extraocular motions intact. EARS: Hearing grossly intact. MOUTH: Oropharynx is normal. NECK: No adenopathy, no JVD. CHEST: Chest with clear breath sounds bilaterally. No wheezes, rales, or rhonchi. CARDIAC: Regular rate and rhythm. S1 and S2, without murmurs, gallops, or rubs. VASCULAR: No Edema. Peripheral pulses normal and equal in all extremities. ABDOMEN: Soft, without detectable tenderness. No sign of distention. No rebound or guarding, and no masses palpated. Bowel Sounds normal. MUSCULOSKELETAL: Good range of motion of all major joints. Extremities without clubbing, cyanosis or edema. NEUROLOGIC EXAM: Awake. Autistic not speaking much.. No focal sensory or strength deficits. Unable to assess speech, Follows some commands. PSYCHIATRIC: Mood normal. SKIN: No rash or lesions. - Constitutional Vitals: Temp Pulse Resp BP Pulse Ox 98.4 F 89 18 108/67 100 08/26/17 08:43 08/26/17 08:43 08/26/17 08:43 08/26/17 08:43 08/26/17 08:43 Plan Activity: advance as tolerated, fall precautions Diet: regular (mechanical soft), advance as tolerated Additional Instructions: Plan outpatient follow up with Urologist Dr Greenfield for kidney stone removal. Need to hold Eliqus for 3-5 days prior to procedure, cordinate with Urologist. Follow up with: TERESA LEE MD [Primary Care Provider] - 7 Days KATE GREENFIELD MD [Staff Physician] - 7 Days GARRETT PHILLIP MD [Staff Physician] - 14 Days Prescriptions: Levofloxacin [Levaquin] 750 mg PO QDAY #7 tablet oxyCODONE /ACETAMINOPHEN [Percocet 5/325 mg] 1 tab PO Q6HR PRN #14 tablet PRN Reason: Pain
[2017-08-26 12:48] VITALS: BP 106/71
== END 2017-08-26 13:37 | disposition home or self-care (01) | DRG 871 ==
LOC: ED 09:08 → UNDOADMIN 11:28 → 3A 11:28 → 4A 12:54 → UNDOADMIN 12:54 → CC1 15:45 → 4A 08-21 12:56
PROVIDERS: ADMIT Internal Medicine; ATTEND Internal Medicine
PROC: 06HM33Z Insertion of Infusion Device into Right Femoral Vein, Percutaneous Approach (ICD-10-PCS; principal; 2017-08-22)
PROC: 0DJ08ZZ Inspection of Upper Intestinal Tract, Via Natural or Artificial Opening Endoscopic (ICD-10-PCS; 2017-08-22)
DX: A41.9 Sepsis, unspecified organism (principal); N17.0 Acute kidney failure with tubular necrosis; K92.2 Gastrointestinal hemorrhage, unspecified; N30.00 Acute cystitis without hematuria; F84.0 Autistic disorder; I82.509 Chronic embolism and thrombosis of unspecified deep veins of unspecified lower extremity; R31.9 Hematuria, unspecified; I10 Essential (primary) hypertension; N21.0 Calculus in bladder; N28.1 Cyst of kidney, acquired; N20.0 Calculus of kidney; E87.6 Hypokalemia; D63.8 Anemia in other chronic diseases classified elsewhere; Z79.01 Long term (current) use of anticoagulants; Z87.442 Personal history of urinary calculi; Z79.899 Other long term (current) drug therapy; Z86.14 Personal history of Methicillin resistant Staphylococcus aureus infection
CPT/HCPCS: 36415; 71045; 74176; 80048; 80053; 81001; 82140; 82550; 82553; 82805; 82962; 83690; 83735; 84100; 84484; 85007; 85014; 85018; 85025; 85027; 85610; 85730; 86850; 86900; 86901; 87040; 87076; 87086; 87186; 93005; 93010; 93306; 96365; 96366; 96367; 96368; 96372; 96375; C9113; J0153; J1630; J1956; J2250; J2270; J2405; J2543; J3475; J7030; J7070

== ENCOUNTER 2017-10-01 10:21 | Observation (INO) | payer MEDICARE ==
--- NOTE | 2017-10-01 11:02 | Anesthesia Consultation ---
Anesthesia Consult and Med Hx Date of service: 10/01/17 - Pre-Operative Health Status ASA Pre-Surgery Classification: ASA4 Proposed Anesthetic Plan: General - Pulmonary Hx Smoking: No Hx Sleep Apnea: No (YAN PRE SCREEN HIGH RISK) - Cardiovascular System Hx Hypertension: Yes Hx Peripheral Vascular Disease: Yes (h/o dvt on Eliquis stopped 09/26) - Central Nervous System Hx Psychiatric Problems: Yes (autism) - Hematic Hx Anemia: Yes - Other Systems Hx Cancer: No - Additional Comments Anesthesia Medical History Comments: record indicates autism, uncooperative and combative. H/O heme emesis s/p GI consult
--- NOTE | 2017-10-01 11:08 | Anesthesia Day of Surgery ---
Anesthesia Day of Surgery - Day of Surgery Patient Examined: Yes Patient H&P Reviewed: Yes Patient is NPO: Yes
[2017-10-01] MEDS ORDERED: ZOFRAN IV PRN ×2 (11:11→15:52)
[2017-10-01] MEDS ORDERED: DECADRON IV NR (11:11)
[2017-10-01] MEDS ORDERED: DILAUDID IV PRN (11:11)
[2017-10-01 11:16] LABS: BUN/Creatinine Ratio 25; Blood Urea Nitrogen 15 mg/dL (9-20); Calcium 9.1 mg/dL (8.4-10.2); Hemolysis Index 6
[2017-10-01 11:19] LABS: INR 0.99 (0.87-1.13); Partial Thromboplastin Time 32.6 Sec. (24.2-36.6)
[2017-10-01 11:23] LABS: Hematocrit 34.2 % (35.5-45.6); Hemoglobin 11.1 gm/dl (11.8-15.2); Mean Corpuscular HGB Conc 32 % (32-34); Mean Corpuscular Hemoglobin 27 pg (28-32); Mean Corpuscular Volume 82 fl (84-94); Platelet Count 137 K/mm3 (140-440); Red Blood Count 4.16 M/mm3 (3.65-5.03); Red Cell Distribution Width 18.5 % (13.2-15.2)
[2017-10-01] MEDS ORDERED: REGLAN IV NR (12:00)
[2017-10-01] MEDS ORDERED: ANCEF/STERILE WATER 2 GM/20 ML IV NR (12:00)
[2017-10-01] MEDS ORDERED: PEPCID IV NR (12:00)
[2017-10-01] MEDS ORDERED: NACL 0.9% 1000 ML 1,000 ML IV SCH (12:00)
[2017-10-01] MEDS ORDERED: NEOSPORIN GU IR ONE (12:35)
[2017-10-01] MEDS ORDERED: XYLOCAINE 1% 20 mL ONE (12:35)
[2017-10-01] MEDS ORDERED: MARCAINE 0.25% INFILTRATI ONE (12:35)
[2017-10-01] MEDS ORDERED: TRIPLE ANTIBIOTIC TP ONE (12:35)
[2017-10-01] MEDS ORDERED: ANCEF/STERILE WATER 2 GM/20 ML 2 GM/20 ML SYRINGE IV NR (13:00)
[2017-10-01 13:43] LABS: Basophils % (Manual) 0 % (0.0-1.8); Total Cells Counted 100
[2017-10-01 13:44] LABS: Anisocytosis 1+
[2017-10-01] MEDS ORDERED: DIPRIVAN 10 MG/ML IV ONE ×2 (14:10→14:21)
[2017-10-01] MEDS ORDERED: QUELICIN ONE (14:11)
[2017-10-01] MEDS ORDERED: VERSED ONE ×2 (14:12→16:42)
[2017-10-01] MEDS ORDERED: SUBLIMAZE ONE (14:13)
--- NOTE | 2017-10-01 14:23 | Post Operative Note ---
Date of procedure: 10/01/17 Pre-op diagnosis: bladdwer stones sepsis Post-op diagnosis: same Findings: as above Procedure: open cystolithotomy spt Anesthesia: GETA Surgeon: KATE GREENFIELD Estimated blood loss: 50-100ml Pathology: list (stone) Specimen disposition: given to patient/family Condition: stable Disposition: PACU
[2017-10-01] MEDS ORDERED: BREVIBLOC IV ONE (14:40)
[2017-10-01] MEDS ORDERED: ZOFRAN ONE (14:40)
[2017-10-01] MEDS ORDERED: DECADRON ONE (14:40)
[2017-10-01] MEDS ORDERED: DILAUDID ONE (14:49)
[2017-10-01] MEDS ORDERED: ROBINUL ONE (15:13)
[2017-10-01] MEDS ORDERED: NEOSTIGMINE ONE (15:13)
[2017-10-01] MEDS ORDERED: NACL 0.9% IR ONE (15:21)
[2017-10-01] MEDS ORDERED: LASIX ONE (15:34)
[2017-10-01] MEDS ORDERED: NARCAN 0.4 MG/1 ML IV PRN (15:52)
[2017-10-01] MEDS ORDERED: NORCO 5/325 PO PRN (15:52)
[2017-10-01] MEDS ORDERED: ANCEF/NS 1 GM/50 ML 1 GM/50 ML BAG IV SCH (16:00)
[2017-10-01] MEDS ORDERED: SUBLIMAZE IV PRN (16:08)
[2017-10-01] MEDS: DILAUDID IV PRN ×4 (16:14→16:44)
[2017-10-01] MEDS ORDERED: PROVENTIL IH ONE (16:14)
[2017-10-01] MEDS ORDERED: VERSED IV NR (17:00)
--- NOTE | 2017-10-01 18:01 | Operative Report ---
PREOPERATIVE DIAGNOSES: Large bladder stone, previous sepsis, urinary retention, autism. POSTOPERATIVE DIAGNOSES: Large bladder stone, previous sepsis, urinary retention, autism. PROCEDURE: Open cystolithotomy with Malecot suprapubic tube insertion. SURGEON: Brett Gilmore MD ANESTHESIA: General. FINDINGS: This is a gentleman with recurrent sepsis, retention, autism, recent epididymitis. He has had an indwelling catheter. He has a 3 cm stone in the bladder, now presents for suprapubic tube insertion. DESCRIPTION OF PROCEDURE: The patient brought to the operating room and placed on the operating table. Following induction of anesthesia, prepped and draped in usual sterile fashion. He was given antibiotics. Midline incision was made, carried down to the space of Retzius. Bladder was filled with approximately 200 mL. The patient was in mild Trendelenburg position. Midline incision was made after stay sutures were placed. Bladder wall was very, very thickened and vascular. Once we got into the bladder, we emptied out the bladder and a large stone was seen. The stone was very soft and would crumble when we grabbed it. It was about 3 cm. We gave the specimen to the family. At this point, the bladder was irrigated because there were little fragments of the stone all over the place. They were adherent to epithelium, so lots of irrigation was used. A 26 Malecot was placed through separate stab wound, brought out through the separate stab wound in the skin and secured with Vicryl and silk at the skin level and Vicryl at the bladder level. The 2 wings were cut off the suprapubic tube. At this point, the wound was irrigated. Bladder was closed in 2 layers with 2-0 Vicryl, 0 Vicryl. The superficial muscle was approximated with Vicryl. Skin was closed with 0 looped PDS, superficial fascia with Vicryl and skin clips. The patient tolerated the procedure well. Family notified. He has a 16-Khmer Montiel, 26 Malecot, which is minimally tinged, brought to recovery room to be observed for 24 hours. We have a small quarter inch Coy that was brought out through a separate stab wound as well, to be removed tomorrow. JOB# [id number] JACKI/CARLYN
[2017-10-01] MEDS: D5W/0.45% NACL/KCL 20 MEQ 20 MEQ/1,000 ML BAG IV SCH (22:23)
[2017-10-01] MEDS: ceFAZolin 1 GM in NACL 0.9% 20 ML IV SCH (23:02)
[2017-10-02] MEDS: ceFAZolin 1 GM in NACL 0.9% 20 ML IV SCH (06:20)
[2017-10-02] MEDS: COLACE PO SCH ×2 (06:34→09:19)
[2017-10-02] MEDS: D5W/0.45% NACL/KCL 20 MEQ 20 MEQ/1,000 ML BAG IV SCH (07:51)
--- NOTE | 2017-10-02 12:50 | Progress Note ---
Assessment and Plan nagy out spt draining mitchell out Subjective Date of service: 10/02/17 Principal diagnosis: retention stones Objective - Constitutional Vitals: Vital Signs - 12hr 10/02/17 10/02/17 05:07 07:22 Temperature 98.8 F 98.7 F Pulse Rate 124 H 113 H Respiratory 18 16 Rate Blood Pressure 154/84 119/70 O2 Sat by Pulse 98 Oximetry General appearance: Present: no acute distress (autistic ) - Respiratory Respiratory effort: normal - Gastrointestinal General gastrointestinal: Present: soft, non-tender - Labs CBC & Chem 7: 10/01/17 10:55 10/01/17 10:55 Labs: Abnormal lab results 10/01/17 Range/Units 10:55 Monocytes % (Manual) 19.0 H (0.0-7.3) % Eosinophils % (Manual) 9.0 H (0.0-4.3) % Seg Neutrophils # Man 1.2 L (1.8-7.7) K/mm3 Lymphocytes # (Manual) 0.4 L (1.2-5.4) K/mm3
--- NOTE | 2017-10-02 12:52 | Discharge Summary ---
Short Stay Discharge Plan Activity: other (no straining ) Weight Bearing Status: Full Weight Bearing Diet: regular Wound: open to air Special Instructions: other (spt care ) Durable Medical Equipment Needed Upon Discharge: other (spt care ) Follow up with: TERESA LEE MD [Primary Care Provider] - 7 Days KATE GREENFIELD MD [Staff Physician] - 14 Days
[2017-10-02 16:56] VITALS: BP 117/71
== END 2017-10-02 19:35 ==
LOC: OR 10:21 → 3B-SURG 15:52
PROVIDERS: ADMIT Urology; ATTEND Urology
DX: N21.0 Calculus in bladder (principal); R31.9 Hematuria, unspecified; F84.0 Autistic disorder; N45.1 Epididymitis
CPT/HCPCS: 36415; 51040; 51050; 80048; 85002; 85007; 85025; 85610; 85730; 96374; 96375; 96376; G0378; J0330; J0690; J1100; J1170; J1940; J2250; J2405; J2704; J2710; J3010; J7030; A6250; J2765